=== PATIENT | female | born 1945 | race Caucasian/White ===

== ENCOUNTER 2017-03-13 11:28 | Emergency (ER) | payer MEDICARE, OTHER ==
[~2017-03-13 11:28] MED LIST: ASPI1TAB22 PO; ASPI81TA3 PO; BISA-67 PO; CELE200C PO; CHOL500014 PO; CYAN500 PO; DICL100G8 TP; DOCU100T2 PO; FENT1PAT11 TOP; FENT1PAT6 TRANSDERM; FOLI1TAB18 PO; LAMO200T2 PO; LORA0.5T PO; MELO-253 PO; METH2.5T PO; METH750T3 PO; OXYC30TA48 PO; PRAV10TA2 PO; RALO60TA PO; VENL37.587 PO; VENL75CA95 PO; ZOF8 PO
[2017-03-13 11:30] VITALS: BP 122/84; PULSE 73; RESP 17; O2SAT 99
--- NOTE | 2017-03-13 11:36 | ED.REPORT ---
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 [facility] [place]. normally healthy. no loc, hit head on floor, no vomit, no nausea, took 2 excedrin 7/10, chronic pain. fell last week in the shower. Almost daily falls. 97 year old Mother in law passed while she is in the ER today. falls per her report because of foot/ankle surgery. States she is learning to walk again Nursing Notes Stated Complaint: GROUND LEVEL FALL Chief Complaint: Multiple Trauma/Fall Nursing Notes Reviewed: Yes Allergies: Coded Allergies: codeine (Verified Allergy, Severe, ITCHING, 03/13/17) gabapentin (Verified Allergy, Severe, Memory/focus ability, 03/13/17) midazolam (Verified Allergy, Severe, N/V SEVERE, 03/13/17) pregabalin (Verified Allergy, Severe, Hallucinations, 03/13/17) Scheduled Aspirin Chew (Aspirin Chew) 81 Mg Chew 81 MG PO DAILY Celecoxib (Celebrex) 200 Mg Capsule 200 MG PO BID Cholecalciferol (Vitamin D3) (Vitamin D) 5,000 Unit Tablet 5,000 UNIT PO DAILY Cyanocobalamin (Vitamin B12) 1,000 Mcg Tablet 1,000 MCG PO DAILY Fentanyl 100 mcg/hr Patch (Fentanyl 100 mcg/hr Patch) 1 Each Patch.td72 1 EACH TOP Q48 Fentanyl 12.5 mcg/hr Patch (Fentanyl 12.5 mcg/hr Patch) 1 Each Patch.td72 1 PATCH TRANSDERM Q3D Folic Acid (Folic Acid) 1 Mg Tablet 1 MG PO DAILY Lamotrigine (Lamotrigine) 200 Mg Tablet 200 MG PO DAILY Meloxicam (Meloxicam) 15 Mg Tablet 15 MG PO DAILY Methotrexate Sodium (Methotrexate) 2.5 Mg Tablet 15 MG PO every Wednesday Pravastatin (Pravastatin) 10 Mg Tablet 10 MG PO HS Raloxifene (Evista) 60 Mg Tablet 60 MG PO DAILY Venlafaxine ER (Venlafaxine ER) 75 Mg Cap.er.24h 75 MG PO DAILY Venlafaxine ER (Venlafaxine ER) 37.5 Mg Tab.er.24 37.5 MG PO DAILY Scheduled PRN Aspirin/Acetaminophen/Caffeine (Excedrin Migraine Caplet) 1 Each Tablet 2 EACH PO DAILY PRN PRN For Headache Bisacodyl (Dulcolax) 5 Mg Tablet.dr 5 MG PO DAILY PRN PRN For Bowel Movement Diclofenac Gel (Voltaren Gel) 100 Gm Gel..gram. 100 GM TP DAILY PRN PRN prn Docusate Sodium (Docusate Sodium) 100 Mg Tablet 100 MG PO DAILY PRN PRN For Constipation Lorazepam (Lorazepam) 0.5 Mg Tablet 0.5-1 MG PO DAILY PRN PRN panic attacks Methocarbamol (Methocarbamol) 750 Mg Tablet 500 MG PO BID PRN PRN For Spasm Ondansetron (Zofran) 8 Mg Tab 8 MG PO BID PRN PRN For Nausea Oxycodone (Roxicodone) 30 Mg Tablet 30-60 MG PO Q6 PRN PRN For Pain General Time Seen by MD: 11:35 Chief Complaint Fall, Face injury Hx Obtained From: Patient Past Medical History Past Medical History Osteoporosis Sclerosis chronic pain Denies: Asthma Past Surgical History Back surgery times 7, foot/ankle surgery. neck surgery Family History Noncontributory Smoking History Former Smoker Social History Other Social History: , Local resident Occupation live with mother in law and and 2 care givers Maribel and Priscila 03/13/2017. mother in law passed while patient in the ER Ambulatory Status Cane Review of Systems Basic Review of Systems Cardiovascular: No chest pain, No dyspnea on exertion, No orthopnea, No parox noct dyspnea, No palpitations Allergy / Immune: No allergy Psychiatric: Normal thought content Physical Exam Initial Vital Signs Vital Signs (First) Date Time Temp Pulse Resp B/P Pulse Ox O2 Delivery O2 Flow Rate FiO2 03/13/17 11:30 37.0 73 17 122/84 99 03/13/17 14:06 Room Air Initial VS: Reviewed, Vital signs normal Head / Eyes: Atraumatic, Normocephalic, PERRL ENT: Mucous membranes moist, Conjunctiva normal, No scleral icterus Respiratory: Breath sounds normal, Clear to auscultation, No respiratory distress Cardiovascular: Regular rate & rhythm, Heart sounds normal, Intact distal pulses Abdomen / GI: Soft, Non-tender, No guarding, No rebound, No distention Back: No CVA tenderness Lymphatic: No lymphadenopathy Extremities: Vascular intact, Neuro intact, No swelling, No tenderness Skin: Warm, Dry, No cyanosis Neurologic: Alert, Oriented, Nonfocal Psychiatric: Mood/affect normal, Behavior normal, Normal thought content General/Constitutional: Awake, Alert, No acute distress, Well appearing, Well developed, Well hydrated, Well nourished, Cooperative, Not toxic appearing midline tenderness in c-3 to c 4 area. patient states pain is chronic ENT: Atraumatic, Airway patent, Mucous membranes moist, Pharynx NL Respiratory / Chest: Atraumatic, Breath sounds NL, Breath sounds = bilat, No respiratory distress Cardiovascular: Heart rate NL, Regular rhythm, Heart sounds NL, No gallop Interpretation & Diagnostics Lab Results Interpretation Test 03/13/17 13:00 Hold Purple Top Tube Received (Received) Hold Blue Top Tube Received (Received) Hold Red Top Tube Received (Received) Hold Dunbar Top Tube Received (Received) X-Ray C-Spine Interpretation PROCEDURE: CT CERVICAL SPINE WITHOUT CONTRAST ([id number]) INDICATIONS: fall ? spine fracture TECHNIQUE: Noncontrast 3 mm thick sections acquired from the skull base to the T4 level. Sagittal and coronal reformats were then constructed. For radiation dose reduction, the following was used: automated exposure control, adjustment of mA and/or kV according to patient size. COMPARISON: None. FINDINGS: Image quality: Excellent. Bones: There is a minimally displaced, partially corticated fracture of the anterior aspect of C1. Ostial lysis along the fracture margins suggest this is a subacute or chronic non-unified fracture (series 6, image 14). There is a minimally displaced posterior left C1 fracture which has an acute appearance (series 4, image 13). Severe degenerative changes are present throughout the cervical spine including intervertebral disc space narrowing, endplate sclerosis, osteophytosis, and subchondral cystic changes. There is grade I C5 on C6 retrolisthesis and grade I C7 on T1 anterolisthesis. These findings are similar in extent to the MRI of the cervical spine dated 07/23/09. Superior thoracic spinal hardware is grossly intact. Soft tissues: Prevertebral soft tissues are normal in thickness. No paravertebral hematomas. No apical pneumothoraces. IMPRESSION: 1. Findings suspicious for acute or subacute fracture of the posterior left C1 vertebral body. Please correlate with physical exam findings and tenderness to palpation. 2. Corticated appearing non-unified anterior C1 fracture which has a chronic appearance. 3. Severe degenerative changes and spondylolisthesis of the cervical spine. Overall these findings are stable when compared with the MRI of the cervical spine dated 07/23/09. Dictated by: Sugar Watts M.D. on 03/13/2017 at 13:46 Approved by: Sugar Watts M.D. on 03/13/2017 at 13:52 X-Ray Interpretation Xray Interpretation: ROCEDURE: X-RAY CERVICAL SPINE, 2 OR 3 VIEWS INDICATIONS: fall TECHNIQUE: Per a view(s) of the cervical spine were acquired. COMPARISON: None. FINDINGS: Bones: Severe degenerative changes are present within the visualized portions of the cervical spine. Given osteopenia and degenerative changes, characterization of the spine is limited. The lateral masses are poorly characterized, and the odontoid is nonvisualized. Soft tissues: No prevertebral soft tissue swelling. IMPRESSION: Markedly limited study. CT of the cervical spine recommended. Dictated by: Sugar Watts M.D. on 03/13/2017 at 12:43 Approved by: Sugar Watts M.D. on 03/13/2017 at 12:44 CT Head Interpretation TECHNIQUE: Noncontrast 4.5 mm thick angled axial sections acquired from the foramen magnum to the vertex, with coronal reformats. COMPARISON: [facility], CT, BRAIN W/O CONTRAST, 11/12/2014, 8:48. FINDINGS: Image quality: Excellent. CSF spaces: Basal cisterns are patent. No extra-axial fluid collections. The ventricles are symmetric in size and shape. Brain: No intracranial bleeds or masses. There is cerebral volume loss for age, with resultant ventricular and sulcal prominence. There are periventricular and deep white matter chronic small vessel ischemic changes. There is intracranial internal carotid artery atherosclerosis. Skull and face: There is a partially characterized fracture at the anterior aspect of C1 and at the posterior left aspect of C1 (series 3, image one). There is mild frontal soft tissue swelling. Calvarium and visualized facial bones appear intact, without suspicious lesions. Sinuses: Visualized sinuses and mastoids are clear. IMPRESSION: 1. Anterior and posterior left C1 fractures which are partially characterized. CT of the neck is recommended. This finding was discussed with ZAHIDA Beal at 12:21 PM on 03/13/17. 2. No acute intracranial findings. 3. Extensive findings likely associated with chronic microvascular ischemic changes. 4. Mild frontal soft tissue swelling without underlying calvarial abnormality. Procedures Laceration Management Time: 13:20 Procedure Performed by: Allied health pract Consent / Setup / Site Prep: Informed consent provided, Consent from patient , Hand hygiene observed, Stand sterile technique Location of Wound: forehead Wound Length: 2 cm Local Anesthesia: Lidocaine 1%, 5cc, 27g needle Digital Block: No Wound Preparation: Normal saline Repair Skin: ___ O (5), Nylon # Sutures - Skin: 5 Suture Technique: Simple Post-Procedure / Complications: Antibiotic oint applied, Dressing applied, No complications, Condition improved, Tolerated procedure well, Patient stable Re-Eval/Medical Decision Med Decision/Clinical Course Discussed with Dr. Martino re: concern for new vs old C-1 fracture. [place] [facility] [place] [facility], Dr. Augustin would like to see and evualate patient in ER. [place] [facility] filled out and discussed with patient. 71 year old female with frequent falls presents for evualation. Laceration repaired, CT of head is unremarkable. X-ray of neck show possible c-[address] of neck does not provide answer. [place] [facility] Departure Impression: Primary Impression: Fall Encounter type: initial encounter Qualified Code: W19.XXXA - Unspecified fall, initial encounter Additional Impression: Laceration of forehead Encounter type: initial encounter Qualified Code: S01.81XA - Laceration without foreign body of other part of head, initial encounter Disposition: Transfer, Acute Care Facility Referrals: Stephanie Leung MD (PCP) EDSupervising Provider for [facility]: Issa Martino MD copies to: Stephanie Leung MD, Sue ARNP March 13, 2017 11:36
--- NOTE | 2017-03-13 12:24 | DRSVH ---
PROCEDURE: CT BRAIN WITHOUT CONTRAST ([id number]) INDICATIONS: fall TECHNIQUE: Noncontrast 4.5 mm thick angled axial sections acquired from the foramen magnum to the vertex, with c oronal reformats. COMPARISON: [facility], CT, BRAIN W/O CONTRAST, 11/12/2014, 8:48. FINDINGS: Image quality: Excellent. CSF spaces: Basal cisterns are patent. No extra-axial fluid collections. The ventricles are symmet erasmo in size and shape. Brain: No intracranial bleeds or masses. There is cerebral volume loss for age, with resultant vent ricular and sulcal prominence. There are periventricular and deep white matter chronic small vessel ischemic changes. There is intracranial internal carotid artery atherosclerosis. Skull and face: There is a partially characterized fracture at the anterior aspect of C1 and at the posterior left aspect of C1 (series 3, image one). There is mild frontal soft tissue swelling. Calvar ium and visualized facial bones appear intact, without suspicious lesions. Sinuses: Visualized sinuses and mastoids are clear. IMPRESSION: 1. Anterior and posterior left C1 fractures which are partially characterized. CT of the neck is shirlene mmended. This finding was discussed with ZAHIDA Beal at 12:21 PM on 03/13/17. 2. No acute intracranial findings. 3. Extensive findings likely associated with chronic microvascular ischemic changes. 4. Mild frontal soft tissue swelling without underlying calvarial abnormality. Dictated by: Sugar Watts M.D. on 03/13/2017 at 12:18 Approved by: Sugar Watts M.D. on 03/13/2017 at 12:23
--- NOTE | 2017-03-13 12:45 | DRSVH ---
PROCEDURE: X-RAY CERVICAL SPINE, 2 OR 3 VIEWS INDICATIONS: fall TECHNIQUE: Per a view(s) of the cervical spine were acquired. COMPARISON: None. FINDINGS: Bones: Severe degenerative changes are present within the visualized portions of the cervical spine. Given osteopenia and degenerative changes, characterization of the spine is limited. The lateral mass es are poorly characterized, and the odontoid is nonvisualized. Soft tissues: No prevertebral soft tissue swelling. IMPRESSION: Markedly limited study. CT of the cervical spine recommended. Dictated by: Sugar Watts M.D. on 03/13/2017 at 12:43 Approved by: Sugar Watts M.D. on 03/13/2017 at 12:44
--- NOTE | 2017-03-13 13:54 | DRSVH ---
PROCEDURE: CT CERVICAL SPINE WITHOUT CONTRAST ([id number]) INDICATIONS: fall ? spine fracture TECHNIQUE: Noncontrast 3 mm thick sections acquired from the skull base to the T4 level. Sagittal and coronal r eformats were then constructed. For radiation dose reduction, the following was used: automated exp osure control, adjustment of mA and/or kV according to patient size. COMPARISON: None. FINDINGS: Image quality: Excellent. Bones: There is a minimally displaced, partially corticated fracture of the anterior aspect of C1. Os tial lysis along the fracture margins suggest this is a subacute or chronic non-unified fracture (ser ies 6, image 14). There is a minimally displaced posterior left C1 fracture which has an acute appear ance (series 4, image 13). Severe degenerative changes are present throughout the cervical spine incl uding intervertebral disc space narrowing, endplate sclerosis, osteophytosis, and subchondral cystic changes. There is grade I C5 on C6 retrolisthesis and grade I C7 on T1 anterolisthesis. These finding s are similar in extent to the MRI of the cervical spine dated 07/23/09. Superior thoracic spinal hardware is grossly intact. Soft tissues: Prevertebral soft tissues are normal in thickness. No paravertebral hematomas. No ap ical pneumothoraces. IMPRESSION: 1. Findings suspicious for acute or subacute fracture of the posterior left C1 vertebral body. Please correlate with physical exam findings and tenderness to palpation. 2. Corticated appearing non-unified anterior C1 fracture which has a chronic appearance. 3. Severe degenerative changes and spondylolisthesis of the cervical spine. Overall these findings ar e stable when compared with the MRI of the cervical spine dated 07/23/09. Dictated by: Sugar Watts M.D. on 03/13/2017 at 13:46 Approved by: Sugar Watts M.D. on 03/13/2017 at 13:52
[2017-03-13 14:06] VITALS: PULSE 75; O2SAT 97
[2017-03-13] MEDS ORDERED: Ipratropium 0.03% 30 mL Nasal Spray Bottle NASAL ONE (14:55)
[2017-03-13] MEDS ORDERED: Fluticasone 0.05% 15 Spray/2 Gm 16 Gm Nasal Spray NASAL ONE (14:55)
== END 2017-03-13 15:30 | disposition short-term general hospital (02) ==
LOC: SED 11:28
DX: S01.81XA Laceration without foreign body of other part of head, initial encounter (principal); W18.2XXA Fall in (into) shower or empty bathtub, initial encounter; W22.8XXA Striking against or struck by other objects, initial encounter; Y92.019 Unspecified place in single-family (private) house as the place of occurrence of the external cause; Y93.E1 Activity, personal bathing and showering; Y99.8 Other external cause status; G89.29 Other chronic pain; M19.90 Unspecified osteoarthritis, unspecified site; Z91.81 History of falling; Z87.891 Personal history of nicotine dependence; Z79.82 Long term (current) use of aspirin; Z88.5 Allergy status to narcotic agent; Z88.8 Allergy status to other drugs, medicaments and biological substances

== ENCOUNTER 2017-07-05 10:17 | Inpatient (IN) | payer MEDICARE, OTHER ==
[~2017-07-05] VITALS: Ht 165.1 cm; Wt 68.2 kg
[2017-07-05] VITALS (10 sets, daily range): BP systolic 133–156; BP diastolic 86–93; PULSE 87–103; RESP 12–23; O2SAT 89–99
--- NOTE | 2017-07-05 10:44 | ED.REPORT ---
HPI-Chest Pain 40 and Over Date of Service Jul 05, 2017 ED Provider: Delaney Zhu MD Patient is a 71 year old female with a hx of HTN and recurrent esophageal spasms who presents to the ED complaining of a symptomatic elevated HR of 140 this morning. Two weeks ago she began experiencing worsening dizziness, fatigue , dyspnea upon exertion, and feeling unsteady. She also complains of chest pressure with radiation to her L arm and L side of neck yesterday morning around 0800. Patient believes that this was an esophageal spasm as the symptoms were similar. She denies chest pain or pressure at this time. She denies melena , hematochezia, diarrhea, vomiting, fevers, chills, or any other symptoms. Nursing Notes Stated Complaint: RAPID HEART RATE Chief Complaint: Dysrhythmia/Cardiac Nursing Notes Reviewed: Yes Allergies: Coded Allergies: codeine (Verified Allergy, Severe, ITCHING, 07/05/17) gabapentin (Verified Allergy, Severe, Memory/focus ability, 07/05/17) midazolam (Verified Allergy, Severe, N/V SEVERE, 07/05/17) pregabalin (Verified Allergy, Severe, Hallucinations, 07/05/17) Scheduled Aripiprazole (Aripiprazole) 5 Mg Tablet 2.5 MG PO DAILY Aspirin Chew (Aspirin Chew) 81 Mg Chew 81 MG PO DAILY Buspirone (Buspirone) 10 Mg Tablet 10 MG PO TID Celecoxib (Celebrex) 200 Mg Capsule 200 MG PO BID Cholecalciferol (Vitamin D3) (Vitamin D3) 5,000 Unit Capsule 5,000 UNIT PO DAILY Cyanocobalamin (Vitamin B12) 1,000 Mcg Tablet 1,000 MCG PO DAILY Estradiol (Yuvafem) 10 Mcg Tablet 10 MCG VAGINAL every three days Fentanyl 50 mcg/hr Patch (Fentanyl 50 mcg/hr Patch) 50 mcg/hr Patch.td72 50 MCG PO every 3 days Folic Acid (Folic Acid) 1 Mg Tablet 1 MG PO DAILY Hydrochlorothiazide (Hydrochlorothiazide) 12.5 Mg Tablet 12.5 MG PO DAILY Lamotrigine (Lamotrigine) 200 Mg Tablet 200 MG PO DAILY Methotrexate Sodium (Methotrexate) 2.5 Mg Tablet 15 MG PO every Wednesday Omeprazole (Omeprazole) 40 Mg Capsule.dr 40 MG PO DAILY Pravastatin (Pravastatin) 10 Mg Tablet 10 MG PO HS Raloxifene (Evista) 60 Mg Tablet 60 MG PO DAILY Teriparatide (Forteo) 2.4 Ml Pen.injctr Unknown Dose INJ QAM Venlafaxine ER (Venlafaxine ER) 225 Mg Tab.er.24 225 MG PO DAILY Scheduled PRN ([excedrin]) 2 TAB PO DAILY PRN PRN For Headache Bisacodyl (Dulcolax) 5 Mg Tablet.dr 5 MG PO DAILY PRN PRN For Bowel Movement Diclofenac Gel (Voltaren Gel) 100 Gm Gel..gram. 100 GM TP DAILY PRN PRN prn Docusate Sodium (Colace) 100 Mg Capsule 100 MG PO DAILY PRN PRN For Constipation Fluticasone Propionate (Fluticasone Propionate Nasal) 16 Gm [place].susp 1 SPRAY NASAL DAILY PRN PRN prn Ipratropium [place] (Ipratropium [place] 0.06% Nasal) 15 Ml [place] 1 SPRAY NASAL DAILY PRN PRN prn Methocarbamol (Methocarbamol) 500 Mg Tablet 500-750 MG PO q6 hours PRN PRN For Pain Ondansetron (Zofran) 8 Mg Tab 8 MG PO TID PRN PRN For Nausea Oxycodone (Roxicodone) 15 Mg Tablet 15 MG PO BID PRN PRN For Pain General Time Seen by MD: 10:37 Chief Complaint Other (Elevated HR ) Hx Obtained From: Patient, Spouse Arrived By: Walk-in Sudden in Onset?: No Risk Factors )( CAD Risk Stratification HypertensionNo Diabetes mellitus, No Smoking Risk factors reviewed )( TAD Risk Stratification HypertensionNo Aortic valve disease, No Risk factors reviewed )( PE Risk Stratification No Previous DVT, No Previous PE Risk factors reviewed Past Medical History Past Medical History Notes: Normally goes to [facility] in [place] for primary care Past Medical History Osteoporosis Sclerosis scoleosis chronic pain esophageal spasms Pseudo gout HTN BIpolar TIA depression skin cancer C1-C2 fx March 2017 venous stasis with non-healing ulcer on R side chronic tremor arthritis Past Surgical History Back surgery times 7, foot/ankle surgery. neck surgery lumbar synovial cyst removal L femur michelle Wrist fusions Reports: Hysterectomy Family History Noncontributory Smoking History Former Smoker Social History Other Social History: , Local resident Occupation live with mother in law and and 2 care givers Maribel and Priscila 03/13/2017. mother in law passed while patient in the ER Ambulatory Status Walker Review of Systems Review of Systems Note: +elevated HR Constitutional: Reports: Fatigue, Denies: Chills, Fever Respiratory: Reports: Dyspnea on exertion Cardiovascular: Denies: Chest pain GI: Denies: Diarrhea, Hematochezia, Melena, Vomiting Neurologic: Reports: Dizziness, Problem walking (unsteady gait ) Complete sys rev & neg: except as marked. Physical Exam Initial Vital Signs Vital Signs (First) Date Time Temp Pulse Resp B/P Pulse Ox O2 Delivery O2 Flow Rate FiO2 07/05/17 10:21 37.0 95 20 156/90 99 Room Air Initial VS: Reviewed, Vital signs normal Head / Eyes: Atraumatic, Normocephalic Neck: Supple, Full range of motion Skin: Warm, Dry Psychiatric: Mood/affect normal, Behavior normal, Normal thought content General/Constitutional: Awake, Alert, No acute distress Respiratory / Chest: Atraumatic, Breath sounds NL, Breath sounds = bilat, No respiratory distress Cardiovascular: Heart rate NL, Regular rhythm, Heart sounds NL Abdomen: Atraumatic, Soft, Non-tender Lower Extremity / Pelvis / MS: No deformity Compression wrap on R miranda Neurologic: Oriented X3, Speech NL Upper extremity tremor at baseline Interpretation & Diagnostics Lab Results Interpretation Result Diagram: 07/05/17 1110 07/05/17 1110 Test 07/05/17 11:10 White Blood Count 7.2th/mm3 (3.8-10.1) Red Blood Count 4.19mil/mm3 (3.90-5.20) Hemoglobin 13.2g/dL (12.0-15.6) Hematocrit 40.4% (35.0-46.0) Mean Corpuscular Volume 96.4fL (81-100) Mean Corpuscular Hemoglobin 31.5pg (27.0-35.0) Mean Corpuscular Hemoglobin Concent 32.7% (32.0-37.0) Red Cell Distribution Width 14.7% (12.3-15.4) Platelet Count 265bil/L (150-400) Neutrophils (%) (Auto) 72.5% (40-74) Lymphocytes (%) (Auto) 15.1% (14-46) Monocytes (%) (Auto) 8.4% (4-12) Eosinophils (%) (Auto) 2.6% (0-5) Basophils (%) (Auto) 0.6% (0-3) Sodium Level 140mEq/L (134-144) Potassium Level 4.3mEq/L (3.5-5.2) Chloride Level 100mEq/L (97-108) Carbon Dioxide Level 23mmol/L (18-29) Blood Urea Nitrogen 29mg/dL (8-27) Creatinine 0.75mg/dL (0.57-1.00) Estimat Glomerular Filtration Rate 109mL/min (>59) Glucose Level 92mg/dL (60-99) Calcium Level 9.5mg/dL (8.5-10.1) Magnesium Level 1.5mg/dL (1.6-2.6) Total Bilirubin 0.4mg/dL (0.0-1.2) Aspartate Amino Transf (AST/SGOT) 30U/L (0-50) Alanine Aminotransferase (ALT/SGPT) 23U/L (0-32) Alkaline Phosphatase 85U/L (25-165) Troponin T 0.010ug/L (0.0-0.011) Total Protein 7.2g/dL (6.4-8.4) Albumin 4.2g/dL (3.4-5.0) ECG Interpretation ECG Interpretation: Sinus rate 87 probable left atrial enlargement LVH Similar to 11/12/14 (including strain pattern) No acute cahnges Time: 10:59 Interpreted by: ED physician X-Ray Chest Interpretation Chest Xray Interpretation: IMPRESSION: Questionable subtle bibasilar airspace disease may represent superimposed overlying bony/soft tissues. However, developing pneumonia, aspiration, or atelectasis may also have this appearance. Please correlate clinically. Dictated by: Hi Vegas M.D. on 07/05/2017 at 10:27 Approved by: Hi Vegas M.D. on 07/05/2017 at 10:28 View: Portable, 1 view Interpretation / Wet Read by: Interpret - Radiologist CT Chest Interpretation PE Study: IMPRESSION: 1. No visualized pulmonary embolism. 2. Small area of opacity along the left major fissure, possibly atelectasis. 3. Large hiatal hernia. Dictated by: Joyce Velasquez M.D. on 07/05/2017 at 14:57 Re-Eval/Medical Decision Med Decision/Clinical Course 71-year-old woman presents with 2 weeks of progressive orthostatic hypotension. She had initially thought that she was going into atrial fibrillation every time she stood up it turns out that she is simply in a sinus tach. Over the last 2 weeks she finds that she can get up in the morning do some simple tasks in the kitchen and then his fatigue for the remainder of the day with progressive dyspnea as well. Workup to date suggest that she is not having a STEMI she is not acutely anemic she is not in renal failure nor liver failure. She does not have a PE she is not septic she does not have significant pulmonary obstructive difficulties nor pneumonia. She had a liter of fluid and continues to have significant orthostatic symptoms. Laying flat her heart rate is in the mid 90 range sitting up it goes into the 115 range and standing she is dizzy unsteady feels that she was near syncopal and is in a sinus tach in the 120 range Will be admitted for additional workup including further neurologic and cardiac evaluation Time of Eval: 13:08 Re-Evaluation/Progress Note: Rechecked pt who is doing well. Discussed plan for CT to evaluate for PE. Patient understands and agrees with plan. All questions addressed at this time. Consultation : Consulted With: Hospitalist Call Returned at: 16:24 Note: Dr Xiao case reviewed. Discharge & Departure Primary Impression: Postural dizziness with near syncope Ruled Out: STEMI (ST elevation myocardial infarction), Acute blood loss anemia , Renal failure, Sepsis, Atrial fibrillation Disposition: ADMITTED TO HOSPITAL Referrals: Stephanie Leung MD (PCP) Scribe Attestation Portions of this note were transcribed by Carlos Shah. I, Dr. Zhu personally performed the history, physical exam and medical decision-making; I reviewed and confirmed the accuracy of the information in the transcribed note. Signed by: Fabian Birmingham, 07/05/17 copies to: Stephanie Leung MD, Shawna L MD Jul 05, 2017 10:44 CARLOS SHAH Jul 05, 2017 10:53
[2017-07-05 11:24] LABS: BASOPHILS % (AUTO) 0.6 % (0-3); EOSINOPHILS % (AUTO) 2.6 % (0-5); MONOCYTES % (AUTO) 8.4 % (4-12); Mean Corpuscular Hemoglobin 31.5 pg (27.0-35.0); Mean Corpuscular Volume 96.4 fL (81-100); NEUTROPHILS % (AUTO) 72.5 % (40-74); Platelet Count 265 bil/L (150-400)
--- NOTE | 2017-07-05 11:30 | DRSVH ---
PROCEDURE: X-RAY CHEST ONE VIEW, PORTABLE ([id number]) INDICATIONS: palpatations TECHNIQUE: One view of the chest was acquired. COMPARISON: [facility], , CHEST 2VW, 06/28/2014, 12:38. FINDINGS: Surgical changes and devices: Extensive postoperative changes of the thoracolumbar spine are not adeq uately evaluated on this exam but are similar to the prior study. Lungs and pleura: There is slight increased attenuation within the bilateral lung bases, which may be exaggerated by superimposed bony and soft tissues. No lobar consolidation, effusion, or pneumothora x is evident. Mediastinum: Mediastinal contours appear normal. Heart size is normal. There is aortic atheroscler osis. Bones and chest wall: No suspicious bony lesions. Overlying soft tissues appear unremarkable. IMPRESSION: Questionable subtle bibasilar airspace disease may represent superimposed overlying bony/soft tissues . However, developing pneumonia, aspiration, or atelectasis may also have this appearance. Please co rrelate clinically. Dictated by: Hi Vegas M.D. on 07/05/2017 at 10:27 Approved by: Hi Vegas M.D. on 07/05/2017 at 10:28
[2017-07-05 11:50] LABS: TROPONIN T 0.01 ug/L (0.0-0.011)
[2017-07-05 12:02] LABS: Magnesium 1.5 mg/dL (1.6-2.6)
[2017-07-05] MEDS ORDERED: 0.9% Sodium Chloride 1,000 ML IV ONE (12:10)
--- NOTE | 2017-07-05 15:06 | DRSVH ---
PROCEDURE: CT ANGIO CHEST PULMONARY EMBOLISM ([id number]) INDICATIONS: sinus tachycardia, weakness, dyspnea TECHNIQUE: After the administration of intravenous contrast, 2 mm thick sections acquired from the pulmonary api jodi to the posterior costophrenic angles. 3-dimensional maximum intensity projection (MIP) coronal a nd sagittal reformats were then acquired through the thorax. For radiation dose reduction, the follo wing was used: automated exposure control, adjustment of mA and/or kV according to patient size. COMPARISON: None. FINDINGS: Image quality: Excellent. Pulmonary arteries: Pulmonary arteries are normal in size, and demonstrate no intraluminal filling d efects to suggest central pulmonary embolism. Lungs and pleura: Minimal opacity is present along the left major fissure. No pleural effusions or pneumothorax. Central and peripheral airways are patent. Mediastinum: Heart size is normal, without pericardial effusion. No mediastinal or hilar adenopathy . Thoracic aorta is normal in caliber and enhancement. Esophagus is normal in caliber, with large h iatal hernia. Bones and chest wall: No suspicious bony lesions. Ribs and thoracic spine appear intact throughout. Thyroid gland is unremarkable. No axillary or supraclavicular adenopathy. Abdomen: Visualized upper abdominal solid organs appear normal in the early arterial phase of enhanc ement. IMPRESSION: 1. No visualized pulmonary embolism. 2. Small area of opacity along the left major fissure, possibly atelectasis. 3. Large hiatal hernia. Dictated by: Joyce Velasquez M.D. on 07/05/2017 at 14:57 Approved by: Joyce Velasquez M.D. on 07/05/2017 at 15:05
[2017-07-05] MEDS ORDERED: FENT1PAT9 PO (15:15)
[2017-07-05] MEDS ORDERED: IPRA15SP NASAL (15:15)
[2017-07-05] MEDS ORDERED: OXYC15TA45 PO (15:15)
[2017-07-05] MEDS ORDERED: TERI2.4P INJ (15:15)
[2017-07-05] MEDS ORDERED: HYDR12.55 PO (15:15)
[2017-07-05] MEDS ORDERED: excedrin PO (15:15)
[2017-07-05] MEDS ORDERED: BUSP10TA2 PO (15:15)
[2017-07-05] MEDS ORDERED: ARIP5TAB20 PO (15:15)
[2017-07-05] MEDS ORDERED: DOCU-41 PO (15:15)
[2017-07-05] MEDS ORDERED: ESTR10TA4 VAGINAL (15:15)
[2017-07-05] MEDS ORDERED: VENL225T3 PO (15:15)
[2017-07-05] MEDS ORDERED: ROB500 PO (15:15)
[2017-07-05] MEDS ORDERED: FLUT16SP NASAL (15:15)
[2017-07-05] MEDS ORDERED: OMEP40CA36 PO (15:15)
[2017-07-05] MEDS ORDERED: CHOL5000 PO (15:15)
[2017-07-05] MEDS ORDERED: Ondansetron 2 mg/mL 2 mL Inj IVPUSH PRN (16:40)
[2017-07-05] MEDS ORDERED: Alum-Mag Hydrox-Simeth 30 mL Suspension PO PRN (16:40)
[2017-07-05] MEDS ORDERED: Polyethylene Glycol (PEG) 17 Gm Powder PO PRN (16:40)
[2017-07-05] MEDS ORDERED: Fluticasone 0.05% 15 Spray/2 Gm 16 Gm Nasal Spray NASAL PRN (16:45)
[2017-07-05] MEDS ORDERED: IPRATROPIUM BROMIDE NASAL PRN (16:45)
--- NOTE | 2017-07-05 16:52 | PCM.HPMED ---
Subjective Date of Service Jul 05, 2017 Primary Provider: Admitting Physician: Primary Care Physician: Stephanie Leung MD Attending Physician: Admit Status: From the Emergency Department, Admit to Red Team Chief Complaint: Dizziness, Dyspnea History of Present Illness: The patient is a 68-year-old female with past medical history notable for bipolar disorder, type 2 DM, spinal scoliosis and severe osteoporosis, status post multiple surgeries and on chronic pain medications, obstructive sleep apnea, and questionable prior history of TIA, who presents to the ED due to complaints of dizziness, she states that when she is at rest she feels fine but when she gets up the dizziness is so bad she is not able to carry on with her usual life activities. She states that she usually can get up and transferring to wheelchair with the help of 2 people. She lives with her caregiver Edie and her . Patient states that she had an esophageal spasm yesterday that lasted 5-6 hours before subsiding. She notes that in the past she used to take nitroglycerin which would relieve the pain but she did not have any at home this time. She understands that she is on a lot of pain medications and psychiatric medications that could exacerbate her dizziness, however she is not willing to go off if any of them. She understands that she might be more limited in her activity level without changes to her medications. The patient was noted to be tachycardic when they tried to stand her up. Troponins were negative, she appeared to be dehydrated with the BUN of 29 and creatinine of 0.75. CT of chest PE protocol was performed due to dyspnea and it was negative for PE she has some questionable opacities along the left major fissure, large hiatal hernia. EKG showed normal sinus rhythm, rate of 87, probable LVH. Her magnesium was low at 1.5 she was given a liter of fluid, she does not appear to think that this made any difference. An attempt to stand her up in the room was not successful as she needed 2 people to help her at her baseline. Patient's labs showed no other abnormalities. She is also on methotrexate because her armed guard Dr. 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 Reviewing her previous records show that she had echocardiogram in 2013 that showed 60-65% EF, left atrial dilation, moderate tricuspid regurgitation, pulmonary pressures of 49 mmHg. She also has had a prior admission in 2014 for stroke rule out. An MRA performed at that time showed Chronic lacunar infarct left cerebrum as well as an age-related changes. Review of Systems: Complete review of systems performed, pertinent positives and negatives per history of present illness, all other systems reviewed and are negative. Allergies Coded Allergies: codeine (Verified Allergy, Severe, ITCHING, 07/05/17) gabapentin (Verified Allergy, Severe, Memory/focus ability, 07/05/17) midazolam (Verified Allergy, Severe, N/V SEVERE, 07/05/17) pregabalin (Verified Allergy, Severe, Hallucinations, 07/05/17) Home Medications Home medications include aripiprazole, aspirin, BuSpar, Celebrex, vitamin D3, vitamin B12, hydrochlorothiazide, folic acid, starting out vaginal cream, fentanyl 50 g every 72 hours patch, lamotrigine, methotrexate weekly, omeprazole, pravastatin, raloxifene, teriparatide, venlafaxine as well as when necessary diclofenac, when necessary Flonase, when necessary DuoNeb's, when necessary naproxen, when necessary Zofran, when necessary oxycodone PMH bipolar disorder, type 2 DM, spinal scoliosis and severe osteoporosis, status post multiple surgeries and on chronic pain medications, obstructive sleep apnea, and questionable prior history of TIA, . 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 HEENT: PERRLA, EOMI, sclerae anicteric, head atraumatic, oral mucosa slightly dry. Neck is supple. Full range of motion, mild JVD elevation on the left side\ Respiratory. Lungs clear to auscultation bilaterally.Normal respiratory effort noted. No crackles or wheezes Cardiovascular: Regular rate, rhythm. No significant rub or gallop noted. Abdomen is soft, nontender, nondistended. Positive bowel sounds. Extremities: No cyanosis, left leg is shortened and externally rotated but she states that this is her baseline after her surgery , positive for left foot clubbing, negative for edema. Neurologic: Awake, alert, oriented x3. Cranial nerves 2-12 appear grossly intact, 4/5 strength in upper extremity and lower extremity bilaterally. Tongue is midline. No nystagmus noted. Speech is intact. No other acute focal deficits appreciated. Fpsyav-zy-eulm is intact, she is able to do alternating hands, negative Babinski's, patellar reflexes are equal and symmetric Skin exam without any obvious or gross ulcers or rash. Musculoskeletal without any obvious or gross joint swelling or tenderness. Hypertrophied hand joints are noted externally deviated hands. Psychiatric: Negative for any anxiety or agitation Lab and Diagnostics Result Diagram: 07/05/17 1110 07/05/17 1110 X-Rays, CTs and MRIs PROCEDURE: CT ANGIO CHEST PULMONARY EMBOLISM ([id number]) INDICATIONS: sinus tachycardia, weakness, dyspnea IMPRESSION: 1. No visualized pulmonary embolism. 2. Small area of opacity along the left major fissure, possibly atelectasis. 3. Large hiatal hernia. Dictated by: Joyce Velasquez M.D. on 07/05/2017 at 14:57 Approved by: Joyce Velasquez M.D. on 07/05/2017 at 15:05 PROCEDURE: CT BRAIN WITHOUT CONTRAST ([id number]) IMPRESSION: 1. No acute intracranial abnormalities. 2. Cerebral volume loss and chronic microvascular ischemic changes. 3. Non-acute C1 fractures. Dictated by: Cornelio Santoyo M.D. on 07/05/2017 at 16:52 Approved by: Cornelio Santoyo M.D. on 07/05/2017 at 16:58 PROCEDURE: X-RAY CHEST ONE VIEW, PORTABLE ([id number]) INDICATIONS: palpatations IMPRESSION: Questionable subtle bibasilar airspace disease may represent superimposed overlying bony/soft tissues. However, developing pneumonia, aspiration, or atelectasis may also have this appearance. Please correlate clinically. Dictated by: Hi Vegas M.D. on 07/05/2017 at 10:27 Approved by: Hi Vegas M.D. on 07/05/2017 at 10:28 Assessment & Plan This is a pleasant 71-year-old female with past medical history of severe scoliosis and osteoporosis which she has undergone numerous surgeries, also a C1 -C2 fracture in March of this year, several pain medications for her chronic pain , several psychiatric issues for which she is on number psychiatric medications is presenting today with extreme dizziness. Assessment #1 presyncopal/dizziness present admission acute -- Hydration with normal saline under cc per hour -- Telemonitoring -- Trend troponins -- Carotid ultrasound, echocardiogram -- I discussed stopping some of her medications at the minimum holding them, patient is very adamant about not stopping any of her medications. We may need to discuss this with psych. -- Orthostatic blood pressures -- A1c to rule out diabetes as a cause of her dizziness -- Other risk factors include age, Central etiologies, infection, recent medication changes, chronic pain medication usage. Once again she is very adamant about not stopping any of her pain medications and that means she will continue to be dizzy. -- Physical therapy is ordered Assessment #sinus tachycardia acute present admission -- This could be due to dehydration, anxiety, cardiac, respiratory reasons. CTA PE protocol is negative -- Cardiac enzymes will be trended -- Telemonitoring -- Echo in the a.m. Assessment #2 dyspnea present on admission acute -- Etiology is unclear at this time, she had no PE. CTA done in the ER. Had some kind of esophageal spasm yesterday -- Trend troponins, initial troponin was negative -- She did have bibasilar airspace disease, atelectasis on her chest x-ray probably due to pain medications and not breathing deep enough, she has no cough or sputum that she endorses Assessment #3 pseudogout related arthritis chronic presumed stable -- Continue home medications Assessment #4 depression chronic presumed stable -- Continue home medications -- Consider psych consult Assessment #5 bipolar disorder chronic presumed stable -- Continue his home medications -- Consider psych consult Hypertension chronic presumed stable -- Continue home medications Osteoporosis chronic presumed stable -- Continue home medications to the extended it is possible Chronic scoliosis and related pain presumed stable Pain Evaluation: Adequate Pain Control Resuscitation Status: CPR: Attempt Resuscitation ( is her alternate decision-maker) Time spent 45 minutes Kusum Xiao DO Jul 05, 2017 16:17 Assessment #3 pseudogout related arthritis chronic presumed stable -- Continue home medications Assessment #4 depression chronic presumed stable -- Continue home medications -- Consider psych consult Assessment #5 bipolar disorder chronic presumed stable -- Continue his home medications -- Consider psych consult Hypertension chronic presumed stable -- Continue home medications Osteoporosis chronic presumed stable -- Continue home medications to the extended it is possible Chronic scoliosis and related pain presumed stable Pain Evaluation: Adequate Pain Control Resuscitation Status: CPR: Attempt Resuscitation ( is her alternate decision-maker) Time spent 45 minutes Kusum Xiao DO Jul 05, 2017 16:17
[2017-07-05] MEDS ORDERED: Magnesium Sulf 2 Gm/50mL Water 2 GM in IV Premix 1 EACH IV ONE (16:55)
--- NOTE | 2017-07-05 16:59 | DRSVH ---
PROCEDURE: CT BRAIN WITHOUT CONTRAST ([id number]) INDICATIONS: postural tachycardia TECHNIQUE: Noncontrast 4.5 mm thick angled axial sections acquired from the foramen magnum to the vertex, with c oronal reformats. COMPARISON: [facility], MR, BRAIN W&W/O CONTRAST, 10/10/2015, 16:06. [facility], CT, CT CERVICAL SPINE WO CON, 03/13/2017, 13:25. [facility], CR, XR CERVICAL SPINE 2 OR 3VW, 03/13/2017, 12:10. [facility], CT, CT BRAIN WO CON, 03/13/2017, 12:07. FINDINGS: Image quality: Excellent. CSF spaces: Basal cisterns are patent. No extra-axial fluid collections. The ventricles are symmet erasmo in size and shape. Brain: No intracranial bleeds or masses. Old lacunar infarct is noted in the left internal capsule. There is cerebral volume loss for age, with resultant ventricular and sulcal prominence. There are p eriventricular and deep white matter chronic small vessel ischemic changes. There is intracranial in ternal carotid artery atherosclerosis. Skull and face: Calvarium and visualized facial bones appear intact, without suspicious lesions. Aga in noted are anterior and posterior C1 ring fractures. Sinuses: Visualized sinuses and mastoids are clear. IMPRESSION: 1. No acute intracranial abnormalities. 2. Cerebral volume loss and chronic microvascular ischemic changes. 3. Non-acute C1 fractures. Dictated by: Cornelio Santoyo M.D. on 07/05/2017 at 16:52 Approved by: Cornelio Santoyo M.D. on 07/05/2017 at 16:58
--- NOTE | 2017-07-05 18:42 | NUR ---
admitted to room 1014 from ER only complaint at this time is vertigo with movement or standing, denies nausea, LS clear,
[2017-07-05] MEDS: 0.9% Sodium Chloride 1,000 ML IV SCH (19:19)
[2017-07-05] MEDS ORDERED: ESTRADIOL 10 MCG VAGINAL SCH (19:30)
--- NOTE | 2017-07-05 20:29 | DRSVH ---
PROCEDURE: US BILATERAL DUPLEX DOPPLER IMAGING OF THE CAROTIDS ([id number]) INDICATIONS: dizziness TECHNIQUE: Color and pulse Doppler interrogation was performed of both carotid systems, with image documentation and velocity measurements. COMPARISON: None. FINDINGS: Stenosis calculations are based on SRU (Society of Radiologists in Ultrasound) criteria. Right side: Brachial blood pressure: 150/86 mm Hg. Common carotid artery peak systolic velocity: 95 cm/sec. Internal carotid artery peak systolic velocity: 148 cm/sec. Internal carotid artery end diastolic velocity: 35 cm/sec. External carotid artery peak systolic velocity: 86 cm/sec. ICA/CCA peak systolic ratio: 1.56. Mullins scale imaging description: Dense atheromatous calcification is present at the carotid bifurcatio n. Percent internal carotid artery stenosis: 50-69% stenosis Vertebral artery: Flow direction is antegrade. Left side: Brachial blood pressure: 150/86 mm Hg. Common carotid artery peak systolic velocity: 85 cm/sec. Internal carotid artery peak systolic velocity: 106 cm/sec. Internal carotid artery end diastolic velocity: 32 cm/sec. External carotid artery peak systolic velocity: 74 cm/sec. ICA/CCA peak systolic ratio: 1.25. Mullins scale imaging description: Atheromatous plaque is present at the carotid bifurcation Percent internal carotid artery stenosis: Less than 50% stenosis. Vertebral artery: Flow direction is antegrade. IMPRESSION: 1. 50-69% stenosis of the right internal carotid artery. 2. Less than 50% stenosis of the left internal carotid artery. These findings are unchanged when compared with the study dated 11/13/14. Dictated by: Sugar Watts M.D. on 07/05/2017 at 20:24 Approved by: Sugar Watts M.D. on 07/05/2017 at 20:27
[2017-07-05 21:43] LABS: APPEARANCE,URINE CLEAR (CLEAR,HAZY); COLOR,URINE YELLOW (YELLOW)
[2017-07-05 21:44] LABS: OCCULT BLOOD,URINE NEGATIVE (NEGATIVE); UROBILINOGEN,URINE NORMAL (NORMAL)
[2017-07-05] MEDS: BusPIRone 15 mg Dividose Tablet PO SCH (22:44)
[2017-07-06] VITALS (7 sets, daily range): BP systolic 131–169; BP diastolic 53–106; PULSE 76–108; RESP 18–20; O2SAT 96–99
--- NOTE | 2017-07-06 03:01 | NUR ---
SCDs/Vertigo On initial assessment, patient refused to wear SCDs. 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 Pain medication administered for upper back pain. Patient stated pain at 6/10 on pain scale. Patient states vertigo when moving from bed to bsc. Call light within reach. Care continues.
[2017-07-06 05:35] LABS: EOSINOPHILS % (AUTO) 5.5 % (0-5); MONOCYTES % (AUTO) 9.2 % (4-12); Mean Corpuscular Hemoglobin 31.2 pg (27.0-35.0); Mean Corpuscular Volume 97.5 fL (81-100); Platelet Count 255 bil/L (150-400)
[2017-07-06] MEDS: 0.9% Sodium Chloride 1,000 ML IV SCH ×2 (05:50→12:39)
[2017-07-06 06:03] LABS: Magnesium 1.9 mg/dL (1.6-2.6)
[2017-07-06] MEDS ORDERED: Venlafaxine XR 75 mg ER24 Capsule PO SCH (08:30)
[2017-07-06] MEDS ORDERED: Ipratropium 0.03% 30 mL Nasal Spray Bottle NASAL PRN (08:30)
[2017-07-06] MEDS: BusPIRone 15 mg Dividose Tablet PO SCH ×2 (09:59→15:43)
--- NOTE | 2017-07-06 11:10 | NUR ---
Case Management: GARRY given and explained to pt. Marge WHITMORE RN
--- NOTE | 2017-07-06 13:00 | DRSVH ---
[facility] [address] [place] [address] Echocardiogram Report Name: BARBIE FARAH Date : 07/06/2017 Height: 65 in Hospital Exam Location: [facility] Weight: 154 lb Gender: Female BSA: 1B8 m2 : 1945 Age: 71 yrs BP: 149/89 mmHg Reason For Study: Dizziness Ordering Physician: Performed By: Yara Stuart Interpretation Summary Normal sinus rhythm. Normal LV size, wall thickness, wall motion and LV systolic function. EF is 60-65%. Stage I diastolic dysfunction. Moderate MAC with mild associated MR. Otherwise nor significant valvular abnormalities. Moderate LA enlargement. Otherwise normal chamber sizes. There is moderate central TR; estimated PA systolic pressure is 49 mm hg assuming RA pressure of 15 mm Hg. Compared to prior study 06/12/2014 MAC progressed from mild to moderate. Procedure: A two-dimensional transthoracic echocardiogram with color flow and Doppler was performed. The study quality was technically adequate. Comparison is made with the echocardiogram of 06/12/2014. The patient was in normal sinus rhythm during the exam. Left Ventricle: The left ventricle is normal in size. There is normal left ventricular wall thickness. Proximal septal thickening is noted. The ejection fraction is estimated to be 60-65%. There are no focal wall motion abnormalities. Right Ventricle: The right ventricle is normal in size and function. Atria: The left atrium is moderately dilated. Right atrial size is normal. There is no Doppler evidence for an interatrial shunt. Mitral Valve: The mitral valve leaflets are slightly calcified. There is systolic anterior motion of the chordal apparatus. There is mild to moderate mitral annular calcification. The mitral regurgitant jet is eccentrically directed. There is mild mitral regurgitation. Aortic Valve: The aortic valve is trileaflet. The aortic valve opens well. No aortic regurgitation is present. Tricuspid Valve: The tricuspid valve leaflets are thin and pliable. There is mild to moderate tricuspid regurgitation. The right ventricular systolic pressure is estimated at 49 mmHg assuming a right atrial pressure of 15 mm Hg. Pulmonic Valve: The pulmonic valve leaflets are thin and pliable; valve motion is normal. There is mild pulmonic regurgitation. Great Vessels: The aortic root is normal size. The ascending aorta is mildly enlarged. The aortic arch is normal in size. The IVC is dilated (diameter is greater than 2.1 cm) and it collapses less than 50% with a sniff. This suggests a high right atrial pressure of 15 mm Hg. Pericardium/ Pleura There is no pericardial effusion. MMode/2D Measurements & Calculations LVIDd: 4B2 cm RA long axis LVOT diam: 2B0 cm LVIDs: 3B0 cm LA A2 area: 22B7 cm Ao root diam FS: 29B7 % LA A4 area: 22B9 cm RA area EPSS: 0B13 cm LA length (vol) Aortic Jxn: 2B6 cm IVSd: 0B85 cm : 13B2 cm asc Aorta Diam LVPWd: 0B81 cm LA vol: 83B2 ml RA vol LA vol index : 35B0 ml Ao Arch Diam (Prox RA Trans): 3B1 cm : 19B8 mm2 IVC diam: 2B4 cm LV bolden. diameter/BSA LV sys. diameter/BSA RVD1 (basal) RVD2 (mid): 3B1 cm (cm/m^2): 2B4 (cm/m^2): 1B7 Doppler Measurements & Calculations Ao V2 max MV E max flynn MV E/A: 0B72 TR max flynn : 153B8 cm/sec : 79B8 cm/sec Med Peak E' Flynn : 289B7 cm/sec Ao max PG MV A max flynn TR max PG : 9B5 mmHg : 110B2 cm/sec E/E' med: 17B7 : 33B6 mmHg Ao mean PG MV P1/2t: 65B2 msec Lat Peak E' Flynn PA V2 max : 105B2 cm/sec LVOT Max Flynn E/E' lat: 19B0 PA mean PG : 160B9 cm/sec E/e' average PA Accel Time JOCELIN(I,D): 3B3 cm : 0B09 sec sev ratio: 1B1 MV dec time MV P1/2t max flynn Ao V2 mean LV V1 max PG : 0B22 sec : 116B5 cm/sec MVA(P1/2t): 3B4 cm2 Ao V2 VTI: 30B3 cmLV V1 VTI JOCELIN(V,D): 3B2 cm2 : 32B7 cm PA V2 mean JOCELIN indexed to BSA : 59B8 cm/sec (cm^2/m^2): 1B8 Reading Physician:12:59 PM
--- NOTE | 2017-07-06 16:13 | NUR ---
Vertigo Patient describes as more dizziness than vertigo. Patient up with physical therapy ambulated out into hallway . Patient is noted to be unsteady and tremulous . Patient has significant muscular skeletal history with surgeries to back/neck and lower ext so balance is not stable at times. Orthostatic vitals done when patient up with physical therapy no significant change noted.
--- NOTE | 2017-07-06 17:02 | CONS ---
[address] [address] CONSULTATION REPORT PATIENT: BARBIE FARAH : 1945 MR#: [id number] ADMIT: 07/05/2017 JOB ID: [id number] DATE OF SERVICE: IDENTIFICATION: The patient is a 68-year-old, white female, currently wheelchair bound. She has been to her for 39 years. 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 She lives with her caregiver and her . 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 They currently lives in [place]. REASON FOR ADMISSION: Client in the emergency department. Complained of being dizzy, so bad she could not get up and attend ADLs. REASON FOR CONSULT: Assessment of psychiatric medications as potential contributor to dizziness. HISTORY OF PRESENT ILLNESS: I met with the patient for a 60-minute evaluation, reviewed course and records kept by [facility]. I reviewed her course with Dr. Xiao. Client's main issue at this time is depression and chronic pain management. The condition is chronic and has been developing over the past decade. At present, it is of a severe intensity, manifesting with symptoms of poor interest, poor energy, and poor appetite. She is complaining of progressive weakness, orthostatic hypotension, fatigue, and dyspnea. In regards to her chronic pain, she is being treated with fentanyl. She had been at 200 mcg per day, but over the past year has decreased to a 50 mcg per day patch. She works with the pain clinic. In regards to her psychiatric illness, she has been followed by psychiatrist, Dr. Sp Houser, who felt that she had bipolar disorder and has her on a combination of Lamictal, Effexor, Abilify, and BuSpar. He has since retired and she is currently seeing Dr. Renato Jose, who is her current active psychiatrist that she sees in [place]. She is currently presenting with no signs of emotional liability or cognitive deficits. Her main difficulty seems to be related to physical side effects of a combination of psychiatric and pain meds. PSYCHIATRIC REVIEW OF SYSTEMS: Was positive for depression but was actually negative for mike, psychosis, trauma, or substance abuse. She has mild symptoms of anxiety. MEDICATIONS: 1. Methotrexate. 2. Aspirin. 3. Celebrex. 4. Hydrochlorothiazide. 5. Omeprazole. 6. Pravastatin. 7. Raloxifene. 8. Teriparatide. PSYCHIATRIC MEDS: 1. Lamictal 200 h.s. 2. Venlafaxine ER 225, recently increased from 150 over the past month. 3. Abilify 2.5 daily. 4. Buspar 10 t.i.d., recently added over the past month. 5. Fentanyl 50 mcg patch q.72 h. from pain clinic in [facility] since 2008. Had been at 200 mcg last year. PHYSICAL REVIEW OF SYSTEMS: Constitution: Feels poorly, feels tired. Neurological system review of systems positive for dizziness. Cardiac: Positive for orthostatic hypotension. ALLERGIES: 1. CODEINE. 2. GABAPENTIN. 3. MIDAZOLAM. 4. PREGABALIN. ILLNESSES: Diabetes type 2, spinal scoliosis, osteoporosis, chronic pain, sleep apnea, rule out TIA. Lacunar stroke. C1-C2 fracture, March 2017. FAMILY MEDICAL HISTORY: Mother of lung cancer. Father of carotid stenosis. PAST PSYCHIATRIC HISTORY: Client had none before being diagnosed with bipolar mood disorder six years ago. PSYCHOSOCIAL HISTORY: Born in [place], [place]. 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 History of trauma: Client denies. DRUG AND ALCOHOL: Client denies. LETHALITY: Client denies. : to her 39 years. He is ex [employer] but currently advisor. QUAKER: Mandaen but a good Scientology. LEGAL HISTORY: None. VITAL SIGNS: 156/90, pulse 95, respirations 20, afebrile. Pulse lying down 90. Pulse standing up 120. Client feels syncopal and dizzy on standing. EKG: Normal sinus rhythm. CT of the chest: No PE. Liver, electrolytes normal except magnesium at 1.5. MENTAL STATUS: Neatly dressed, calm, pleasant, good eye contact, animated. Normal speech. Mood: Dysphoric. Affect: Bright, normal intensity. Thought process: Client is able to relate a coherent history. She is able to appreciate complex abstractions. No signs of psychosis. Multiple themes of grief and loss and frustration with her current situation. No signs of delusions. No signs of lethality in terms of suicide or homicide. Denies auditory hallucinations. Alert and oriented to person, place, and date. Immediate, short, and long-term memory intact. Attention and concentration normal. Insight and judgment appropriate. Impulse control: Highly contained. Reality testing intact. Competence to handle current stressors: Is currently being overwhelmed. IMPRESSION: The patient is a 68-year-old, white female, with multiple medical problems relating to spinal stenosis and chronic pain. She has been on high doses of narcotics since 2008 through a pain clinic in [facility]. She recently reduced fentanyl from 200 mcg per day to 50 over the past year. She has been struggling with multiple psychiatric medications to treat depression. She is currently on a combination of Lamictal, venlafaxine, Abilify, and BuSpar. We talked about the relative risks, benefits and side effects of these medications. We talked about how both the psychiatric medications and the narcotics can contribute to her side effects of dizziness. She has an active psychiatrist that she will be seeing this week and I would not recommend changing any meds now. I gave her a list of options to talk with her outpatient psychiatrist about, for the two of them to consider. DIAGNOSIS: Lamont I. Major depressive disorder, recurrent. Lamont II. Defer. Lamont III. Diabetes type 2, spinal scoliosis, orthostatic hypotension, scoliosis, chronic pain, sleep apnea, history of transient ischemic attack. Lamont IV. Moderate. Lamont V. Current GAF equal to 45 RECOMMENDATIONS: Would encourage client to attempt to increase physical activity, such as swimming, on a regular basis and re-engage her episcopalian. Client is currently getting isolated at home, not moving, only watching TV. Would recommend trying to decrease fentanyl to 25 mcg patch every three days. Would consider discontinuing Abilify and BuSpar, decreasing Lamictal to 150, decreasing Effexor to 150, and adding Latuda 20 mg h.s. 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 I know this is atypical, but given her try of multiple different medications, this seems to be one path that would be appropriate. Thank you for a very interesting consultation, Dr. Xiao.
--- NOTE | 2017-07-06 17:10 | NUR ---
Social Work: Initial Assessment/Multidisciplinary Rounds D: EMR reviewed. Please see Initial Assessment linked to this note for more information. Pt is a 71 year old female admitted Aimee with a readmit risk score of 3 for Orthostatic hypotension per H&P. Pt's insurance is Medicare and FromUs. PCP is Blanca Ndiaye PA-C for Stephanie Leung MD. Pt discussed in multidisciplinary rounds, pt to receive echo. Psychiatry may consult on pt for medication management. SW met with pt and at bedside to conduct initial assessment. Pt was alert and oriented x3. SW explained role and wrote phone number on white board. SW provided [facility] Discharge Planning Checklist and encouraged pt to contact SW for any discharge planning questions. Pt lives at home with her spouse in [place]. Pt is independent with personal care ADLs but has in-home caregivers 7 days a week. Pt's caregivers assist with all cooking, cleaning, and transportation. Pt uses a walker or cane at baseline but also has a wheelchair available for use. Pt receives assistance with ambulation at baseline, has been [facility] to [facility] in the hospital. Pt does not drive. Pt is on an extensive pain and psychiatric medication regimen. Pt reports that she has chronic pain in addition to diagnosis of bipolar disorder. Pt sees Dr. Waldo Jose in [place], [place] for medication management and psychiatric services once a month. Pt denies any SI or HI at this time. Pt has history of SNF at [facility], history of HHPT through [facility]. Pt has no LTC or VA benefits. Pt reports that she has outpt PT scheduled at [facility] for use after discharge. Pt declined any DPOA information at bedside, pt has not completed this paperwork at this time. Pt's d/c plan is evolving. Pt's or cdl driver would transport home at time of d/c. SW will continue to follow. A: Pt who is dependent at baseline and receives assistance from caregivers 7 days a week. P: Evolving; pt's pain and psychiatric medication regimen to be evaluated. Pt's or cdl driver would transport home at discharge. SW will continue to follow for d/c planning needs as they arise. MESFIN Streeter Addendum: 07/06/17 at 1721 by CEDRIC ALMONTE SS Amended: Links added.
--- NOTE | 2017-07-06 21:12 | PCM.PNMED ---
Subjective Date of Service Jul 06, 2017 Subjective Patient is seen and examined. She is moving better today, feeling a little bit better, she is able to stand up with the nurses' help Exam Vital Signs Vital Sign - Last Date Time Temp Pulse Resp B/P Pulse Ox O2 Delivery O2 Flow Rate FiO2 07/06/17 08:57 37.1 85 18 131/53 98 Room Air Intake and Output 07/05/17 07/05/17 07/06/17 Cumulative From/Thru 15:00 23:00 07:00 07/05/17 10:21 - 07/06/17 07:00 Intake Total 1000 ml 600 ml 3170 ml 4770 ml Output Total 0 ml 1750 ml 1750 ml Balance 1000 ml 600 ml 1420 ml 3020 ml Intake Oral 600 ml 450 ml 1050 ml IV Total 1000 ml 2720 ml 3720 ml Output Urine Total 0 ml 1750 ml 1750 ml # Bowel Movements 0 0 Exam General appearance: No apparent distress, speaking in full sentences. HEENT: sclerae anicteric, head atraumatic Neck is supple. Full range of motion, mild JVD elevation on the left side Respiratory. Lungs clear to auscultation bilaterally.Normal respiratory effort noted. No crackles or wheezes Cardiovascular: Regular rate, rhythm. No significant rub or gallop noted. Abdomen is soft, nontender, nondistended. Positive bowel sounds. Neurologic: Awake, alert, oriented x3. No focal deficits Musculoskeletal Hypertrophied hand joints are noted externally deviated hands. Psychiatric: Negative for any anxiety or agitation IVs and Medications Medications Reviewed: Medications were reviewed in detail Lab and Diagnostics Result Diagram: 07/06/17 0522 07/06/17 0522 X-Rays, CTs and MRIs PROCEDURE: CT ANGIO CHEST PULMONARY EMBOLISM ([id number]) INDICATIONS: sinus tachycardia, weakness, dyspnea IMPRESSION: 1. No visualized pulmonary embolism. 2. Small area of opacity along the left major fissure, possibly atelectasis. 3. Large hiatal hernia. Dictated by: Joyce Velasquez M.D. on 07/05/2017 at 14:57 Approved by: Joyce Velasquez M.D. on 07/05/2017 at 15:05 PROCEDURE: CT BRAIN WITHOUT CONTRAST ([id number]) IMPRESSION: 1. No acute intracranial abnormalities. 2. Cerebral volume loss and chronic microvascular ischemic changes. 3. Non-acute C1 fractures. Dictated by: Cornelio Santoyo M.D. on 07/05/2017 at 16:52 Approved by: Cornelio Santoyo M.D. on 07/05/2017 at 16:58 PROCEDURE: X-RAY CHEST ONE VIEW, PORTABLE ([id number]) INDICATIONS: palpatations IMPRESSION: Questionable subtle bibasilar airspace disease may represent superimposed overlying bony/soft tissues. However, developing pneumonia, aspiration, or atelectasis may also have this appearance. Please correlate clinically. Dictated by: Hi Vegas M.D. on 07/05/2017 at 10:27 Approved by: Hi Vegas M.D. on 07/05/2017 at 10:28 Assessment & Plan This is a pleasant 71-year-old female with past medical history of severe scoliosis and osteoporosis which she has undergone numerous surgeries, also a C1 -C2 fracture in March of this year, several pain medications for her chronic pain , several psychiatric issues for which she is on number psychiatric medications is presenting today with extreme dizziness. Assessment #1 presyncopal/dizziness present admission acute -- Hydration with normal saline under cc per hour -- Telemonitoring -- Trend troponins -- Carotid ultrasound, echocardiogram -- I discussed stopping some of her medications at the minimum holding them, patient is very adamant about not stopping any of her medications. Psych was consulted, we appreciate their time and effort. their recommendations were made available late in the day "Would encourage client to attempt to increase physical activity, such as swimming, on a regular basis and re-engage her orthodoxy. Client is currently getting isolated at home, not moving, only watching TV. Would recommend trying to decrease fentanyl to 25 mcg patch every three days. Would consider discontinuing Abilify and BuSpar, decreasing Lamictal to 150, decreasing Effexor to 150, and adding Latuda 20 mg h.s. 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 -- Orthostatic blood pressures are performed on 07/05, negative -- A1c to rule out diabetes as a cause of her dizziness -- Other risk factors include age, Central etiologies, infection, recent medication changes, chronic pain medication usage. -- Physical therapy is ordered: They do not feel this is BPPV. -- Discussed case with Dr. Paula Burton on c neurologist, who recommends MRI brain without. Patient declined even though I offered her Ativan, stating that she would need to be completely sedated for the study. was also interested in knowing if this is an option for the patient. I contacted anesthesiology and recommended nothing by mouth diet overnight, with a plan to take her to the OR in the morning for propofol brief sedation. -- OK stroke protocol is ordered with these instructions. Please follow up in the a.m. -- Nothing by mouth after midnight Assessment #sinus tachycardia acute present admission -- This could be due to dehydration, anxiety, cardiac, respiratory reasons. CTA PE protocol is negative -- Cardiac enzymes are trended and negative -- Telemonitoring showed improved heart rate overnight, continue hydration with IV fluids -- 07/06 Echo "Normal sinus rhythm. Normal LV size, wall thickness, wall motion and LV systolic function. EF is 60-65%. Stage I diastolic dysfunction. Moderate MAC with mild associated MR. Otherwise nor significant valvular abnormalities. Moderate LA enlargement. Otherwise normal chamber sizes. There is moderate central TR; estimated PA systolic pressure is 49 mm hg assuming RA pressure of 15 mm Hg. Compared to prior study 06/12/2014 MAC progressed from mild to moderate." -- There is concern for left atrial dilation based on this echo, thus we feel the need to rule out stroke using MR stroke protocol Assessment #2 dyspnea present on admission acute -- Etiology is unclear at this time, she had no PE. CTA done in the ER. Had some kind of esophageal spasm yesterday -- Trend troponins, initial troponin was negative -- She did have bibasilar airspace disease, atelectasis on her chest x-ray probably due to pain medications and not breathing deep enough, she has no cough or sputum that she endorses Assessment #3 pseudogout related arthritis chronic presumed stable -- Continue home medications Assessment #4 depression chronic presumed stable -- Patient's medications are updated based on psych recommendations Assessment #5 bipolar disorder chronic presumed stable -- Patient's medications are updated based on psych recommendations Hypertension chronic presumed stable -- Continue home medications Osteoporosis chronic presumed stable -- Continue home medications to the extended it is possible Chronic scoliosis and related pain presumed stable -- Consider reducing her pain medication in the a.m. per psych recommendation. This will be a dose reduction by 50% Resuscitation Status: CPR: Attempt Resuscitation ( is her alternate decision-maker) Time spent 45 min Kusum Xiao DO Jul 06, 2017 09:05
[2017-07-06] MEDS ORDERED: Albuterol-Ipratropium 3 mL Inhalation Solution NEB PRN (21:15)
[2017-07-06] MEDS: lamoTRIgine 100 mg Tablet PO SCH (21:58)
[2017-07-07] VITALS (10 sets, daily range): BP systolic 122–153; BP diastolic 77–95; PULSE 72–106; RESP 16–20; O2SAT 93–98
--- NOTE | 2017-07-07 01:17 | NUR ---
Pain/Elevated BP Patient denies pain during initial assessment. States dizziness and vertigo when moving. Patient expresses concern about MRI on 07/06 in regards to being claustrophobic. Patients bp on assessment was 169/106 with a HR of 108. Dr. Carney paged . HCT 12.5mg PO administered. Other VSS. Call light within reach. Care continues.
--- NOTE | 2017-07-07 01:39 | NUR ---
Anxiety Patient states that she is extremely nervous about the MRI scheduled today. Would like anesthesia to be made aware that she needs to sedated with propofol.
--- NOTE | 2017-07-07 13:59 | PCM.PNMED ---
Subjective Date of Service Jul 07, 2017 Subjective Pt to go for MRI today under general anaesthesia. Exam Vital Signs Vital Sign - Last Date Time Temp Pulse Resp B/P Pulse Ox O2 Delivery O2 Flow Rate FiO2 07/07/17 11:05 36.4 106 20 146/89 98 Room Air Intake and Output 07/06/17 07/06/17 07/07/17 Cumulative From/Thru 15:00 23:00 07:00 07/05/17 10:21 - 07/07/17 06:26 Intake Total 1621 ml 1274 ml 7665 ml Output Total 859 ml 1600 ml 4209 ml Balance 762 ml -326 ml 3456 ml Intake Oral 470 ml 400 ml 1920 ml IV Total 1151 ml 874 ml 5745 ml Output Urine Total 859 ml 1600 ml 4209 ml # Bowel Movements 1 0 1 Exam General appearance: No apparent distress, speaking in full sentences. HEENT: sclerae anicteric, head atraumatic Neck is supple. Full range of motion, mild JVD elevation on the left side Respiratory. Lungs clear to auscultation bilaterally.Normal respiratory effort noted. No crackles or wheezes Cardiovascular: Regular rate, rhythm. No significant rub or gallop noted. Abdomen is soft, nontender, nondistended. Positive bowel sounds. Neurologic: Awake, alert, oriented x3. No focal deficits Musculoskeletal Hypertrophied hand joints are noted externally deviated hands. Psychiatric: Negative for any anxiety or agitation IVs and Medications Medications Reviewed: Medications were reviewed in detail Lab and Diagnostics Result Diagram: 07/06/1752107/06/17 05 X-Rays, CTs and MRIs PROCEDURE: CT ANGIO CHEST PULMONARY EMBOLISM ([id number]) INDICATIONS: sinus tachycardia, weakness, dyspnea IMPRESSION: 1. No visualized pulmonary embolism. 2. Small area of opacity along the left major fissure, possibly atelectasis. 3. Large hiatal hernia. Dictated by: Joyce Velasquez M.D. on 07/05/2017 at 14:57 Approved by: Joyce Velasquez M.D. on 07/05/2017 at 15:05 PROCEDURE: CT BRAIN WITHOUT CONTRAST ([id number]) IMPRESSION: 1. No acute intracranial abnormalities. 2. Cerebral volume loss and chronic microvascular ischemic changes. 3. Non-acute C1 fractures. Dictated by: Cornelio Santoyo M.D. on 07/05/2017 at 16:52 Approved by: Cornelio Santoyo M.D. on 07/05/2017 at 16:58 PROCEDURE: X-RAY CHEST ONE VIEW, PORTABLE ([id number]) INDICATIONS: palpatations IMPRESSION: Questionable subtle bibasilar airspace disease may represent superimposed overlying bony/soft tissues. However, developing pneumonia, aspiration, or atelectasis may also have this appearance. Please correlate clinically. Dictated by: Hi eVgas M.D. on 07/05/2017 at 10:27 Approved by: Hi Vegas M.D. on 07/05/2017 at 10:28 Assessment & Plan This is a pleasant 71-year-old female with past medical history of severe scoliosis and osteoporosis which she has undergone numerous surgeries, also a C1 -C2 fracture in March of this year, several pain medications for her chronic pain , several psychiatric issues for which she is on number psychiatric medications is presenting today with extreme dizziness. #presyncopal/dizziness present admission, acute -- Orthostatic blood pressures are performed on 07/05, negative -- Other risk factors include age, Central etiologies, infection, recent medication changes, chronic pain medication usage. - 07/06 Echo - EF is 60-65%. Stage I diastolic dysfunction.No significant valvular abnormalities. LA Dilation. -- Physical therapy is ordered: They do not feel this is BPPV. Rec SNF. Consider Home PT as she already has in place. -- Per hospitalist note 07/06- Discussed case with Dr. Paula Burton [employer] neurologist, who recommends MRI brain without cont. Patient declined even though I offered her Ativan, stating that she would need to be completely sedated for the study. was also interested in knowing if this is an option for the patient. I contacted anesthesiology and recommended nothing by mouth diet overnight, with a plan to take her to the OR in the morning for propofol brief sedation. -- PA stroke protocol pending. #Depression- chronic, active. She has outpatient psychiatrist and should consider the below recs for possible med changes to be made by her outpatient psychiatrist. Dr Amadeo Falcon, Psych note on 07/06- - increase physical activity, such as swimming, on a regular basis and re- engage her oriental orthodox. Client is currently getting isolated at home, not moving, only watching TV. Would recommend trying to decrease fentanyl to 25 mcg patch every three days. Would consider discontinuing Abilify and BuSpar, decreasing Lamictal to 150, decreasing Effexor to 150, and adding Latuda 20 mg h.s. 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 dyspnea present on admission, resolved. -- Etiology is unclear at this time, she had no PE. CTA done in the ER. Had some kind of esophageal spasm yesterday -- Trend troponins, initial troponin was negative -- She did have bibasilar airspace disease, atelectasis on her chest x-ray probably due to pain medications and not breathing deep enough, she has no cough or sputum that she endorses pseudogout related arthritis chronic presumed stable -- Continue home medications bipolar disorder chronic presumed stable -- See above plan. Hypertension chronic presumed stable -- Continue home medications Osteoporosis chronic presumed stable -- Continue home medications to the extended it is possible Chronic scoliosis and related pain presumed stable -- Consider reducing her pain medication in the a.m. per psych recommendation. This will be a dose reduction by 50% Dispo- pending MRI results will decide on placement to SNF vs Home PT. Resuscitation Status: CPR: Attempt Resuscitation ( is her alternate decision-maker) Hernán Bojorquez MD Jul 07, 2017 13:59 Osteoporosis chronic presumed stable -- Continue home medications to the extended it is possible Chronic scoliosis and related pain presumed stable -- Consider reducing her pain medication in the a.m. per psych recommendation. This will be a dose reduction by 50% Dispo- pending MRI results will decide on placement to SNF vs Home PT. Resuscitation Status: CPR: Attempt Resuscitation ( is her alternate decision-maker) Hernán Bojorquez MD Jul 07, 2017 13:59 This will be a dose reduction by 50% Dispo- pending MRI results will decide on placement to SNF vs Home PT. Resuscitation Status: CPR: Attempt Resuscitation ( is her alternate decision-maker) Hernán Bojorquez MD Jul 07, 2017 13:59
[2017-07-07] MEDS: Venlafaxine XR 75 mg ER24 Capsule PO SCH (14:11)
--- NOTE | 2017-07-07 14:24 | DRSVH ---
PROCEDURE: MRI STROKE PROTOCOL ([id number]) Pre- and post-contrast brain MRI, non-contrast brain MR angiogram, pre- and postcontrast neck MR frida ogram INDICATIONS: 71 year-old woman with dizziness. TECHNIQUE: Brain: Noncontrast axial T1 spin echo, axial T2 fast spin echo, sagittal and axial FLAIR, coronal T2 fast spin echo, axial gradient echo, axial diffusion and ADC through the brain. After the administr ation of contrast, axial 3D VIBE of the cranial vasculature and brain. Brain MRA: Non-contrast 3-D time of flight MR angiogram, with multiple nbjehgn-wwiptzlji-aknpyvyfiu (MIP) reformats performed. Neck MRA: Axial and sagittal TruFISP through the neck. Coronal dynamic MR angiogram during administ ration of contrast in the arterial and venous phases, with 3-dimenstional modegbg-zkvldmfno-jdrenzaek n (MIP) reformats constructed from subtraction images. COMPARISON: [facility], , BRAIN W/O CONTRAST, 07/26/2014, 17:27. [facility], MR, BRAIN W/O CONTRAST, 11/13/2014, 12:40. FINDINGS: Image quality: Excellent. BRAIN: CSF spaces: Ventricles are normal in size and shape. Basal cisterns are patent. No extra-axial flu id collections. Brain: There is a focus of hyperintensity on diffusion weighted images in the left cerebellar pedunc le with equivocal decreased ADC, suspicious for a small acute infarct. There is an old lacunar infarc t in the left anne radiata. No intracranial bleeds or mass effects. There is mild cerebral volume loss. Mild/moderate periventricular white matter chronic small vessel ischemic changes are present. Brainstem appears normal. Normal intravascular flow voids are present. No abnormal intracranial enh ancement. Skull and face: Calvarial marrow signal is normal. Orbits appear normal. Sinuses: Sinuses and mastoids are clear. BRAIN MR ANGIOGRAM: Anterior circulation: Intracranial internal carotid arteries are normal in size and enhancement. Th e flow within the paired anterior cerebral arteries is normal and symmetric. The flow within the mid dle cerebral arteries is normal and symmetric. The anterior communicating artery is seen. No stenos es, occlusions, or aneurysms. Posterior circulation: The visualized portions of the vertebral arteries demonstrate normal caliber, and join to form a normal appearing basilar artery. The flow within the posterior cerebral arteries is normal and symmetric. No stenoses, occlusions, or aneurysms. NECK MR ANGIOGRAM: Carotids: Great vessels demonstrate a conventional anatomy as they arise from the aortic arch. The origins of the common carotid arteries appear patent. The calibers and courses of both common caroti d arteries are normal. There is moderate stenosis (~60%) at the origin of the right common carotid ar paulie. The left internal carotid artery demonstrates normal course and caliber. Posterior circulation: The origins of the vertebral arteries appear patent. More superior portions of both vertebral arteries demonstrate normal course and caliber, and join to form a normal appearing basilar artery. Miscellaneous: Subclavian arteries appear patent. Pre-contrast images through the neck show no soft tissue abnormalities. IMPRESSION: BRAIN MRI: 1. Suspect a small acute infarct in the left cerebellar peduncle. 2. Old lacunar infarct in the left anne radiata. 3. Mild cerebral volume loss and mild/moderate chronic microvascular ischemic changes. BRAIN MR ANGIOGRAM: No high-grade stenosis or occlusion in anterior or posterior circulations. NECK MR ANGIOGRAM: 1. Moderate stenosis at the origin of the right common carotid artery. 2. No significant stenosis in vertebral arteries. The estimate of stenosis included in the report of the imaging study was calculated using the NASCET method Dictated by: Cornelio Santoyo M.D. on 07/07/2017 at 13:57 Approved by: Cornelio Santoyo M.D. on 07/07/2017 at 14:22
[2017-07-07] MEDS: lamoTRIgine 100 mg Tablet PO SCH (15:08)
--- NOTE | 2017-07-07 17:20 | PCM.ADCARE ---
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 Parties in Attendance: Patient and Dr. Kusum Xiao Decisional Capacity: Good. Subjective: I reviewed her scoliosis, chronic opiod dependence poor functional status and her desire for ongoing aggressive care including intubation and potential mechanical ventilation should she be unable to breath on her own; also discussed who would speak on her behalf should she be unable to do so and discussed what conversation she had had with her family so they understand her desires if such situation occurred now or in the future. 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 She is physically in feeble condition with many spine disorders and severe arthritis. She may not tolerate chest compressions very well. She is also on a lot of pain medication. She also endorses resting tremors, gait instability. All these conditions require her to have 2 person assist to transfer etc. Plan: We will assist patient in her goals to relieve dizziness and regain her prior mobility status by working on reducing her chronic pain medications and ordering diagnostic tests such as MR stroke protocol. These tests will also help patient understand how to set goals for her self. CODE STATUS: Full Code ADM: Time Spent Adv.Care Planning: Total time spent [id number] and education directly related to advanced planning 30 min Adv. Care Plan Documenation: above, also documented in H&P Kusum Xiao DO Jul 07, 2017 17:20
--- NOTE | 2017-07-07 20:21 | NUR ---
Case Management: COS to Inpatient. IMM explained to patient at 1999, all questions answered. Signed original placed in chart, copy given to patient. Evelyn Scott RN
[2017-07-08] VITALS (7 sets, daily range): BP systolic 123–135; BP diastolic 76–86; PULSE 75–100; RESP 15–20; O2SAT 94–100
--- NOTE | 2017-07-08 05:02 | NUR ---
Pain/activity Pt reports no pain, and anxiety has decreased. She is "just happy to have answers." Pt up to [facility]SC with FWW and SBA this shift, states still has dizziness but no c/o SOB. Call light in reach. Care continues
[2017-07-08] MEDS: Venlafaxine XR 75 mg ER24 Capsule PO SCH (09:12)
[2017-07-08] MEDS: lamoTRIgine 100 mg Tablet PO SCH (09:13)
[2017-07-08] MEDS ORDERED: CREST10T PO (11:56)
[2017-07-08] MEDS ORDERED: LAMO100T PO (11:56)
[2017-07-08] MEDS ORDERED: CLOP75TA28 PO (11:56)
[2017-07-08] MEDS ORDERED: LURA20TA PO (11:56)
[2017-07-08] MEDS ORDERED: VENL75CA PO (11:56)
--- NOTE | 2017-07-08 12:00 | PCM.PNMED ---
Subjective Date of Service Jul 08, 2017 Subjective Pt reports some dizziness with standing. Heart rate increased with activity. Sinus Tach per monitor. Exam Vital Signs Vital Sign - Last Date Time Temp Pulse Resp B/P Pulse Ox O2 Delivery O2 Flow Rate FiO2 07/08/17 08:00 36.4 75 15 132/86 100 Room Air Intake and Output 07/07/17 07/07/17 07/08/17 Cumulative From/Thru 15:00 23:00 07:00 07/05/17 10:21 - 07/08/17 05:20 Intake Total 640 ml 8305 ml Output Total 2100 ml 6309 ml Balance -1460 ml 1996 ml Intake Oral 640 ml 2560 ml IV Total 5745 ml Output Urine Total 2100 ml 6309 ml # Bowel Movements 0 1 Exam General appearance: No apparent distress, speaking in full sentences. HEENT: sclerae anicteric, head atraumatic Neck is supple. Full range of motion, mild JVD elevation on the left side Respiratory. Lungs clear to auscultation bilaterally.Normal respiratory effort noted. No crackles or wheezes Cardiovascular: Regular rate, rhythm. No significant rub or gallop noted. Abdomen is soft, nontender, nondistended. Positive bowel sounds. Neurologic: Awake, alert, oriented x3. No focal deficits Musculoskeletal Hypertrophied hand joints are noted externally deviated hands. Psychiatric: Negative for any anxiety or agitation IVs and Medications Medications Reviewed: Medications were reviewed in detail Lab and Diagnostics Result Diagram: 07/06/1752107/06/17521 X-Rays, CTs and MRIs 07/07/17 PROCEDURE: MRI STROKE PROTOCOL IMPRESSION: BRAIN MRI: 1. Suspect a small acute infarct in the left cerebellar peduncle. 2. Old lacunar infarct in the left anne radiata. 3. Mild cerebral volume loss and mild/moderate chronic microvascular ischemic changes. BRAIN MR ANGIOGRAM: No high-grade stenosis or occlusion in anterior or posterior circulations. NECK MR ANGIOGRAM: 1. Moderate stenosis at the origin of the right common carotid artery. 2. No significant stenosis in vertebral arteries. PROCEDURE: CT ANGIO CHEST PULMONARY EMBOLISM ([id number]) INDICATIONS: sinus tachycardia, weakness, dyspnea IMPRESSION: 1. No visualized pulmonary embolism. 2. Small area of opacity along the left major fissure, possibly atelectasis. 3. Large hiatal hernia. Dictated by: Joyce Velasquez M.D. on 07/05/2017 at 14:57 Approved by: Joyce Velasquez M.D. on 07/05/2017 at 15:05 PROCEDURE: CT BRAIN WITHOUT CONTRAST ([id number] IMPRESSION: 1. No acute intracranial abnormalities. 2. Cerebral volume loss and chronic microvascular ischemic changes. 3. Non-acute C1 fractures. Dictated by: Cornelio Santoyo M.D. on 07/05/2017 at 16:52 Approved by: Cornelio Santoyo M.D. on 07/05/2017 at 16:58 PROCEDURE: X-RAY CHEST ONE VIEW, PORTABLE ([id number]) INDICATIONS: palpatations IMPRESSION: Questionable subtle bibasilar airspace disease may represent superimposed overlying bony/soft tissues. However, developing pneumonia, aspiration, or atelectasis may also have this appearance. Please correlate clinically. Dictated by: Hi Vegas M.D. on 07/05/2017 at 10:27 Approved by: Hi Vegas M.D. on 07/05/2017 at 10:28 Assessment & Plan This is a pleasant 71-year-old female with past medical history of severe scoliosis and osteoporosis which she has undergone numerous surgeries, also a C1 -C2 fracture in March of this year, several pain medications for her chronic pain , several psychiatric issues for which she is on number psychiatric medications is presenting with extreme dizziness. Per 07/07- MRI/MRA- Suspect a small acute infarct in the left cerebellar peduncle. Small Acute Infarct in the left cerebellar peduncle- acute, poa- MRA also showed moderate stenosis at the origin of the right common carotid artery. - Cardiac monitoring, no arrythmia noted. - Changed Asa to Plavix 75mg daily. - Change Pravastatin to Rosuvastatin 20mg daily. - Will need to check Liver Function Tests in one week. Follow up with PCP to make sure tolerating, consider increasing dose to 40mg. - PT/OT evaluation. #presyncopal/dizziness present admission, acute - Likely due acute infarct in the left cerebellar peduncle. Orthostatic blood pressures are performed on 07/05, negative -- Other risk factors include age, Central etiologies, infection, recent medication changes, chronic pain medication usage. - 07/06 Echo - EF is 60-65%. Stage I diastolic dysfunction.No significant valvular abnormalities. LA Dilation. -- Physical therapy do not feel this is BPPV. - See above plan. #Depression- chronic, active. She has outpatient psychiatrist and should consider the below recs for possible med changes to be made by her outpatient psychiatrist. Dr Amadeo Falcon, Psychiatry recommendations. Follow up with your Psychiatrist Dr. Clemente next week to review medication changes and modify further. -increase physical activity, such as swimming, on a regular basis and re-engage her evangelical. -decrease fentanyl to 25 mcg patch every three days. -discontinuing Abilify and BuSpar, -decreasing Lamictal to 150 -decreasing Effexor to 150 -adding Latuda 20 mg h.s for sleep and morning energy. dyspnea present on admission, resolved. -- Etiology is unclear at this time, she had no PE. CTA done in the ER. Had some kind of esophageal spasm yesterday -- Trended troponins, negative. 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 Hypertension chronic presumed stable -- Continue home medications Osteoporosis chronic presumed stable -- Continue home medications to the extended it is possible Chronic scoliosis and related pain presumed stable -- Consider reducing her pain medication in the a.m. per psych recommendation. This will be a dose reduction by 50% Dispo- pending MRI results will decide on placement to SNF vs Home PT. - Changed Asa to Plavix 75mg daily. - Change Pravastatin to Rosuvastatin 20mg daily. - Will need to check Liver Function Tests in one week. Follow up with PCP to make sure tolerating, consider increasing dose to 40mg. Pain Evaluation: Adequate Pain Control Resuscitation Status: CPR: Attempt Resuscitation ( is her alternate decision-maker) Hernán Bojorquez MD Jul 08, 2017 12:00
[2017-07-08] MEDS ORDERED: Fentanyl TOPICAL (12:02)
--- NOTE | 2017-07-08 14:55 | PCM.DC.MED ---
Discharge Summary Date of Service Jul 08, 2017 Dates of Hospitalization Date of Hospital Admission Jul 05, 2017 at 16:33 Date of Discharge: Jul 08, 2017 Providers: Admitting Physician: Kusum Xiao DO Primary Care Physician: Stephanie Leung MD Attending Physician: Tracy Cherry MD Diagnosis at Time of Discharge Diagnosis at Time of Discharge Small Acute Infarct in the left cerebellar peduncle- acute, poa presyncopal/dizziness present admission, active Depression- chronic, active. dyspnea present on admission, resolved. 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 Falcon Procedures XRay, CTs & MRIs 07/07/17 PROCEDURE: MRI STROKE PROTOCOL IMPRESSION: BRAIN MRI: 1. Suspect a small acute infarct in the left cerebellar peduncle. 2. Old lacunar infarct in the left anne radiata. 3. Mild cerebral volume loss and mild/moderate chronic microvascular ischemic changes. BRAIN MR ANGIOGRAM: No high-grade stenosis or occlusion in anterior or posterior circulations. NECK MR ANGIOGRAM: 1. Moderate stenosis at the origin of the right common carotid artery. 2. No significant stenosis in vertebral arteries. PROCEDURE: CT ANGIO CHEST PULMONARY EMBOLISM ([id number]) INDICATIONS: sinus tachycardia, weakness, dyspnea IMPRESSION: 1. No visualized pulmonary embolism. 2. Small area of opacity along the left major fissure, possibly atelectasis. 3. Large hiatal hernia. Dictated by: Joyce Velasquez M.D. on 07/05/2017 at 14:57 Approved by: Joyce Velasquez M.D. on 07/05/2017 at 15:05 PROCEDURE: CT BRAIN WITHOUT CONTRAST ([id number] IMPRESSION: 1. No acute intracranial abnormalities. 2. Cerebral volume loss and chronic microvascular ischemic changes. 3. Non-acute C1 fractures. Dictated by: Cornelio Santoyo M.D. on 07/05/2017 at 16:52 Approved by: Cornelio Santoyo M.D. on 07/05/2017 at 16:58 PROCEDURE: X-RAY CHEST ONE VIEW, PORTABLE ([id number]) INDICATIONS: palpatations IMPRESSION: Questionable subtle bibasilar airspace disease may represent superimposed overlying bony/soft tissues. However, developing pneumonia, aspiration, or atelectasis may also have this appearance. Please correlate clinically. Dictated by: Hi Vegas M.D. on 07/05/2017 at 10:27 Approved by: Hi Vegas M.D. on 07/05/2017 at 10:28 Brief History The patient is a 68-year-old female with past medical history notable for bipolar disorder, type 2 DM, spinal scoliosis and severe osteoporosis, status post multiple surgeries and on chronic pain medications, obstructive sleep apnea, and questionable prior history of TIA, who presents to the ED due to complaints of dizziness, she states that when she is at rest she feels fine but when she gets up the dizziness is so bad she is not able to carry on with her usual life activities. She states that she usually can get up and transferring to wheelchair with the help of 2 people. She lives with her caregiver Edie and her . Patient states that she had an esophageal spasm yesterday that lasted 5-6 hours before subsiding. She notes that in the past she used to take nitroglycerin which would relieve the pain but she did not have any at home this time. She understands that she is on a lot of pain medications and psychiatric medications that could exacerbate her dizziness, however she is not willing to go off if any of them. She understands that she might be more limited in her activity level without changes to her medications. The patient was noted to be tachycardic when they tried to stand her up. Troponins were negative, she appeared to be dehydrated with the BUN of 29 and creatinine of 0.75. CT of chest PE protocol was performed due to dyspnea and it was negative for PE she has some questionable opacities along the left major fissure, large hiatal hernia. EKG showed normal sinus rhythm, rate of 87, probable LVH. Her magnesium was low at 1.5 she was given a liter of fluid, she does not appear to think that this made any difference. An attempt to stand her up in the room was not successful as she needed 2 people to help her at her baseline. Patient's labs showed no other abnormalities. 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 Reviewing her previous records show that she had echocardiogram in 2013 that showed 60-65% EF, left atrial dilation, moderate tricuspid regurgitation, pulmonary pressures of 49 mmHg. She also has had a prior admission in 2014 for stroke rule out. An MRA performed at that time showed Chronic lacunar infarct left cerebrum as well as an age-related changes. Hospital Course This is a pleasant 71-year-old female with past medical history of severe scoliosis and osteoporosis which she has undergone numerous surgeries, also a C1 -C2 fracture in March of this year, several pain medications for her chronic pain , several psychiatric issues for which she is on number psychiatric medications is presenting with extreme dizziness. Per 07/07- MRI/MRA- Suspect a small acute infarct in the left cerebellar peduncle. Small Acute Infarct in the left cerebellar peduncle- acute, poa- MRA also showed moderate stenosis at the origin of the right common carotid artery. - Cardiac monitoring, no arrythmia noted. - Changed Asa to Plavix 75mg daily. - Change Pravastatin to Rosuvastatin 20mg daily. - Will need to check Liver Function Tests in one week. Follow up with PCP to make sure tolerating, consider increasing dose to 40mg. - PT/OT evaluation- rec outpatient PT. #presyncopal/dizziness present admission, acute - Likely due acute infarct in the left cerebellar peduncle. Orthostatic blood pressures have been positive. Psych saw pt and feel psych meds are contributing to orthostatic hypotension and dizziness. See below medication changes by Dr. Falcon. -- Other risk factors include age, Central etiologies, infection, recent medication changes, chronic pain medication usage. - 07/06 Echo - EF is 60-65%. Stage I diastolic dysfunction.No significant valvular abnormalities. LA Dilation. -- Physical therapy do not feel this is BPPV. - See above plan. #Depression- chronic, active. She has outpatient psychiatrist and should consider the below recs for possible med changes to be made by her outpatient psychiatrist. Dr Amadeo Falcon, Psychiatry recommendations. Follow up with your Psychiatrist Dr. Clemente next week to review medication changes and modify further. -increase physical activity, such as swimming, on a regular basis and re-engage her mandaeism. -decrease fentanyl to 25 mcg patch every three days. -discontinuing Abilify and BuSpar, -decreasing Lamictal to 150 -decreasing Effexor to 150 -adding Latuda 20 mg h.s for sleep and morning energy. dyspnea present on admission, resolved. -- Etiology is unclear at this time, she had no PE. CTA done in the ER. Had some kind of esophageal spasm yesterday -- Trended troponins, negative. 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 Hypertension chronic presumed stable -- Continue home medications Osteoporosis chronic presumed stable -- Continue home medications to the extended it is possible Chronic scoliosis and related pain presumed stable -- Consider reducing her pain medication in the a.m. per psych recommendation. This will be a dose reduction by 50% Dispo- PT/OT evaluation- rec outpatient PT. . - Changed Asa to Plavix 75mg daily. - Change Pravastatin to Rosuvastatin 20mg daily. - Will need to check Liver Function Tests in one week. Follow up with PCP to make sure tolerating, consider increasing dose to 40mg. Exam Vital Signs (Last) Date Time Temp Pulse Resp B/P Pulse Ox O2 Delivery O2 Flow Rate FiO2 07/08/17 12:45 87 18 98 Room Air 07/08/17 11:41 36.7 135/76 Test 07/05/17 17:03 07/05/17 21:21 07/05/17 23:14 07/06/17 05:22 Hemoglobin A1c 5.7% (4.8-5.6) Urine Color Yellow (YELLOW) Urine Appearance Clear (CLEAR,HAZY) Urine pH 6.0 (5.0-8.0) Urine Specific [place] 1.010 (1.003-1.035) Urine Protein Negativemg/dL (NEG,TRACE) Urine Glucose (UA) Negativemg/dL (NEGATIVE) Urine Ketones Negativemg/dL (NEGATIVE) Urine Occult Blood Negative (NEGATIVE) Urine Nitrite Negative (NEGATIVE) Urine Bilirubin Negative (NEGATIVE) Urine Urobilinogen Normalmg/dL (NORMAL) Urine Leukocyte Esterase Negative (NEGATIVE) Urine RBC 0-2/hpf (0-2) Urine WBC 0-5/hpf (0-5) Urine Epithelial Cells Moderate/hpf (NONE-MOD) Urine Crystals None seen (NONE SEEN) Urine Bacteria Few/hpf (NONE-FEW) Urine Hyaline Casts None/lpf (NONE) Urine Granular Casts None seen (NONE SEEN) Urine Waxy Casts None seen (NONE SEEN) Urine Red Blood Cell Casts None seen (NONE SEEN) Urine White Blood Cell Casts None seen (NONE SEEN) Urine Mucus None seen (None Seen) Urine Trichomonas None seen (NONE SEEN) Urine Yeast None (NONE SEEN) Urinalysis Comment None Urine Culture Reflexed Not indicated Troponin T 0.010ug/L (0.0-0.011) White Blood Count 5.1th/mm3 (3.8-10.1) Red Blood Count 3.59mil/mm3 (3.90-5.20) Hemoglobin 11.2g/dL (12.0-15.6) Hematocrit 35.0% (35.0-46.0) Mean Corpuscular Volume 97.5fL (81-100) Mean Corpuscular Hemoglobin 31.2pg (27.0-35.0) Mean Corpuscular Hemoglobin Concent 32.0% (32.0-37.0) Red Cell Distribution Width 14.9% (12.3-15.4) Platelet Count 255bil/L (150-400) Neutrophils (%) (Auto) 55.0% (40-74) Lymphocytes (%) (Auto) 28.3% (14-46) Monocytes (%) (Auto) 9.2% (4-12) Eosinophils (%) (Auto) 5.5% (0-5) Basophils (%) (Auto) 1.0% (0-3) Sodium Level 145mEq/L (134-144) Potassium Level 4.3mEq/L (3.5-5.2) Chloride Level 108mEq/L (97-108) Carbon Dioxide Level 25mmol/L (18-29) Blood Urea Nitrogen 21mg/dL (8-27) Creatinine 0.71mg/dL (0.57-1.00) Estimat Glomerular Filtration Rate 116mL/min (>59) Glucose Level 100mg/dL (60-99) Calcium Level 9.0mg/dL (8.5-10.1) Magnesium Level 1.9mg/dL (1.6-2.6) Total Bilirubin 0.4mg/dL (0.0-1.2) Aspartate Amino Transf (AST/SGOT) 17U/L (0-50) Alanine Aminotransferase (ALT/SGPT) 16U/L (0-32) Alkaline Phosphatase 77U/L (25-165) Total Protein 5.7g/dL (6.4-8.4) Albumin 3.5g/dL (3.4-5.0) Discharge Medications Discharge Medications ([Fentanyl]) 1 PATCH PATCH 1 PATCH TOPICAL Q3D Prescribed by: TRACY CHERRY MD Aripiprazole (Aripiprazole) 5 Mg Tablet 2.5 MG PO DAILY (Reported) Aspirin Chew (Aspirin Chew) 81 Mg Chew 81 MG PO DAILY (Reported) Buspirone (Buspirone) 10 Mg Tablet 10 MG PO TID (Reported) Celecoxib (Celebrex) 200 Mg Capsule 200 MG PO BID (Reported) Cholecalciferol (Vitamin D3) (Vitamin D3) 5,000 Unit Capsule 5,000 UNIT PO DAILY (Reported) Clopidogrel (Clopidogrel) 75 Mg Tablet 75 MG PO DAILY Prescribed by: TRACY CHERRY MD Cyanocobalamin (Vitamin B12) 1,000 Mcg Tablet 1,000 MCG PO DAILY (Reported) Estradiol (Yuvafem) 10 Mcg Tablet 10 MCG VAGINAL every three days (Reported) Fentanyl 50 mcg/hr Patch (Fentanyl 50 mcg/hr Patch) 50 mcg/hr Patch.td72 50 MCG PO every 3 days (Reported) Folic Acid (Folic Acid) 1 Mg Tablet 1 MG PO DAILY (Reported) Hydrochlorothiazide (Hydrochlorothiazide) 12.5 Mg Tablet 12.5 MG PO DAILY ( Reported) Lamotrigine (Lamotrigine) 200 Mg Tablet 200 MG PO DAILY (Reported) Lamotrigine (Lamictal) 100 Mg Tablet 150 MG PO DAILY Prescribed by: TRACY CHERRY MD Lurasidone (Latuda) 20 Mg Tablet 20 MG PO HS Prescribed by: TRACY CHERRY MD Methotrexate Sodium (Methotrexate) 2.5 Mg Tablet 15 MG PO every Wednesday (Reported ) Omeprazole (Omeprazole) 40 Mg Capsule.dr 40 MG PO DAILY (Reported) Pravastatin (Pravastatin) 10 Mg Tablet 10 MG PO HS (Reported) Raloxifene (Evista) 60 Mg Tablet 60 MG PO DAILY (Reported) Rosuvastatin Calcium (Crestor) 10 Mg Tablet 20 MG PO DAILY Prescribed by: TRACY CHERRY MD Teriparatide (Forteo) 2.4 Ml Pen.injctr Unknown Dose INJ QAM (Reported) Venlafaxine ER (Venlafaxine ER) 225 Mg Tab.er.24 225 MG PO DAILY (Reported) Venlafaxine ER (Effexor XR) 75 Mg Capsule 150 MG PO DAILY Prescribed by: TRACY CHERRY MD As needed ([excedrin]) 2 TAB PO DAILY PRN PRN For Headache (Reported) Bisacodyl (Dulcolax) 5 Mg Tablet.dr 5 MG PO DAILY PRN PRN For Bowel Movement ( Reported) Diclofenac Gel (Voltaren Gel) 100 Gm Gel..gram. 100 GM TP DAILY PRN PRN prn ( Reported) Docusate Sodium (Colace) 100 Mg Capsule 100 MG PO DAILY PRN PRN For Constipation (Reported) Fluticasone Propionate (Fluticasone Propionate Nasal) 16 Gm [place].susp 1 SPRAY NASAL DAILY PRN PRN prn (Reported) Ipratropium [place] (Ipratropium [place] 0.06% Nasal) 15 Ml [place] 1 SPRAY NASAL DAILY PRN PRN prn (Reported) Methocarbamol (Methocarbamol) 500 Mg Tablet 500-750 MG PO q6 hours PRN PRN For Pain (Reported) Ondansetron (Zofran) 8 Mg Tab 8 MG PO TID PRN PRN For Nausea (Reported) Oxycodone (Roxicodone) 15 Mg Tablet 15 MG PO BID PRN PRN For Pain (Reported) Additional med instructions Dr Amadeo Falcon, Psychiatry recommendations. Follow up with your Psychiatrist Dr. Clemente next week to review below medication changes and modify further. -decrease fentanyl to 25 mcg patch every three days. -discontinuing Abilify and BuSpar, -decreasing Lamictal to 150 -decreasing Effexor to 150 -adding Latuda 20 mg h.s for sleep and morning energy. For Stroke treatment- -Changed Asa to Plavix 75mg daily. -Change Pravastatin to Rosuvastatin 20mg daily Followup Plan Disposition: Home with outpatient Physical Therapy Follow-up plan - Follow up with PCP in 1 week to make sure tolerating new medication Atorvastatin, consider increasing dose to 40mg. - Follow up with your Neurologist, Dr. Renato Clemente, in 1-2 weeks. - Follow up with your Psychiatrist in 1 week to review changes made and further adjust doses to help with dizziness. - Resume Outpatient Physical Therapy. Discharge Diet: No restrictions Discharge Activity: Outpatient Physical Therapy Follow-up Provider: Ever Limon MD Follow-up with PCP in: 1 week Provider: Renato Clemente MD Follow-up in: 1 week Time spent Greater than 30 minutes was spent in preparation of discharge with greater than 50% of that time dedicated to patient counseling and coordination of care. copies to: Ever Limon MD, Navdeep MD Jul 08, 2017 14:55
--- NOTE | 2017-07-08 15:12 | PCM.DIMED ---
Discharge Instructions Date of Service Jul 08, 2017 Dates of Hospitalization Jul 05, 2017 at 16:33 Discharge Diagnosis Discharge Diagnosis Small Acute Infarct in the left cerebellar peduncle- acute, poa presyncopal/dizziness present admission, active Depression- chronic, active. dyspnea present on admission, resolved. pseudogout related arthritis chronic presumed stable bipolar disorder chronic presumed stable Hypertension chronic presumed stable Osteoporosis chronic presumed stable Chronic scoliosis and related pain presumed stable Medication Instructions Additional med instructions Dr Amadeo Falcon, Psychiatry recommendations. Follow up with your Psychiatrist Dr. Clemente next week to review below medication changes and modify further. -decrease fentanyl to 25 mcg patch every three days. -discontinuing Abilify and BuSpar, -decreasing Lamictal to 150 -decreasing Effexor to 150 -adding Latuda 20 mg h.s for sleep and morning energy. For Stroke treatment- -Changed Asa to Plavix 75mg daily. -Change Pravastatin to Rosuvastatin 20mg daily Test Results Test Results 07/07/17 PROCEDURE: MRI STROKE PROTOCOL IMPRESSION: BRAIN MRI: 1. Suspect a small acute infarct in the left cerebellar peduncle. 2. Old lacunar infarct in the left anne radiata. 3. Mild cerebral volume loss and mild/moderate chronic microvascular ischemic changes. BRAIN MR ANGIOGRAM: No high-grade stenosis or occlusion in anterior or posterior circulations. NECK MR ANGIOGRAM: 1. Moderate stenosis at the origin of the right common carotid artery. 2. No significant stenosis in vertebral arteries Diet Discharge Diet: No restrictions Activity Discharge Activity: Outpatient Physical Therapy Patient Instructions Follow-up plan - Follow up with PCP in 1 week to make sure tolerating new medication Atorvastatin, consider increasing dose to 40mg. - Follow up with your Neurologist, Dr. Renato Clemente, in 1-2 weeks. - Follow up with your Psychiatrist in 1 week to review changes made and further adjust doses to help with dizziness. - Resume Outpatient Physical Therapy. Follow-up Provider: Ever Limon MD Follow-up with PCP in: 1 week Provider: Renato Clemente MD Follow-up in: 1 week Hernán Bojorquez MD Jul 08, 2017 15:12
--- NOTE | 2017-07-08 16:04 | NUR ---
Social Work: Discharge D: EMR reviewed. Pt discussed in rounds. PT to evaluate pt for progression of mobility. PT worked with pt this afternoon and updated [employer]. Pt progressed with PT to return home. SW spoke with pt at bedside regarding discharge plan, pt has outpt PT set up already. agreeable that pt will continue assistance at home with her 31/05 caregivers and then begin outpt PT. Pt will follow up with her neurologist and her psychiatrist as an outpt. No additional d/c needs. Pt to transport home via , POV. No additional d/c needs. A: Pt who is dependent at baseline and receives assistance from caregivers 7 days a week. P: Pt to follow up with outpt PT and receive assistance from caregivers 31/05. Pt will follow up with her neurologist and her psychiatrist as an outpt. No additional d/c needs. Pt to transport home via , POV. No additional d/c needs. Lacey Cardona, [employer] CLE[employer]ER
--- NOTE | 2017-07-08 17:59 | NUR ---
Discharge Pt discharged to home with at ~1700. A&Ox3, MERAZ, IV dc'd intact, Tele dc'd, Hard copy scripts provided to pt - and faxed over to pt preferred pharmacy, Pt left unit via with all personal belongings brought out to pt vehicle by . Care Notes and instructions provided on dc dx and new medications; instructed on s/sx to watch for and went over f/u care plan. Pt and left without any unanswered questions. Addendum: 07/08/17 at 1801 by EMELIA COLE RN Pt left in stable condition, New fentanyl patch placed to left chest and previous dosage of Fentanyl 50mcg patch removed prior to dc.
== END 2017-07-08 16:53 | disposition home or self-care (01) | DRG 66 ==
LOC: SED 10:17 → OBSVTOIN 16:33 → OSC 16:33
PROVIDERS: ADMIT Family Medicine; ATTEND Internal Medicine
DX: I63.9 Cerebral infarction, unspecified (principal); R00.0 Tachycardia, unspecified; I10 Essential (primary) hypertension; F31.9 Bipolar disorder, unspecified; K22.4 Dyskinesia of esophagus; G89.29 Other chronic pain; E11.9 Type 2 diabetes mellitus without complications; M11.20 Other chondrocalcinosis, unspecified site; M41.9 Scoliosis, unspecified; I07.1 Rheumatic tricuspid insufficiency; Z79.82 Long term (current) use of aspirin; Z99.3 Dependence on wheelchair